=== PATIENT | female | born 1990 | race Caucasian/White ===

== ENCOUNTER 2019-05-08 13:53 | Outpatient (CLI) | payer MEDICAID, SELFPAY ==
[2019-05-08 15:15] LABS: TSH (W/Ref FT4) 1.31 uIU/mL (0.36-3.74)
[2019-05-11 09:35] LABS: Prolactin 8.1 ng/ml
== END 2019-05-08 14:13 ==
PROVIDERS: PCP Nurse Practitioner Family; Visit Provider Nurse Practitioner Family
DX: N91.2 Amenorrhea, unspecified (principal)
CPT/HCPCS: 84146; 84443

== ENCOUNTER 2019-05-08 14:19 | Outpatient (REF) | payer MEDICAID, SELFPAY ==
--- NOTE | 2019-05-08 13:40 | PAPFT_PTH ---
PATIENT: Ericka Ernandez LOC: [facility] U#:[id number] AGE/SX: 28/F ROOM: RE05/08/[address]: TISH Figueroa : 1990 BED: DIS: 05/08/2019 SPEC #: [id number] RECD: 05/08/19 18:31 STATUS: JONNY REQ #: [id number] GREGG: 05/08/19 13:[address]: Graciela Davis DEPT: [facility] Cytology RECD BY: Yasmine Lujan ENTERED: 05/08/19 18:31 SP TYPE: PAPFT OTHR DR: Deepak Ashley Tissues: 1 - CX/ENDOCX FOR PAP SMEARS Procedures: PAP THIN PREP/UVM Screening Comments: [id number]
== END 2019-05-08 14:39 ==
LOC: LBN 14:19
PROVIDERS: PCP Nurse Practitioner Family; Visit Provider Nurse Practitioner Family
DX: Z12.4 Encounter for screening for malignant neoplasm of cervix (principal)
CPT/HCPCS: 88142

== ENCOUNTER 2019-07-24 15:08 | Outpatient (REF) | payer MEDICAID, SELFPAY ==
[2019-07-27 14:44] LABS: Chlamydia Result Negative (Negative); GC Result Negative (Negative)
== END 2019-07-24 15:28 ==
LOC: NCHCN 15:08
PROVIDERS: PCP Nurse Practitioner Family; Visit Provider Nurse Practitioner Family
DX: Z11.3 Encounter for screening for infections with a predominantly sexual mode of transmission (principal)
CPT/HCPCS: 87491; 87591

== ENCOUNTER 2019-07-28 01:27 | Outpatient (CLI) | payer MEDICAID, SELFPAY ==
--- NOTE | 2019-07-28 14:12 | DI.US_ITS ---
EXAM: US PELVIS TRANSVAGINAL CLINICAL HISTORY: Dyspareunia and amenorrhea, N91.2. TECHNIQUE: Ultrasound of the pelvic, both abdominal and transvaginal was performed using standard pr otocol. COMPARISON: No exams were available for comparison FINDINGS: KIDNEYS: Kidneys are symmetric in size. No evidence of renal calculi. No evidence of hydronephrosis. No renal mass or cyst identified. UTERUS: Position: Anteverted. Size: 8.6 x 3.5 x 4.8 cm Endometrium: 0.7 cm. Normal for patient's menstrual status. Myometrium: Unremarkable. Cervix: Unremarkable. OVARIES: Right: 3 x 2.2 x 1.9 cm Cyst or mass: Small follicular cysts. No solid mass. Left: 2.8 x 1.7 x 1.7 cm Cyst or mass: Small follicular cysts. No solid mass. DOPPLER: Color: Symmetric and uniform flow to both ovaries. No hyperemia. Duplex: Normal ovarian arterial waveforms visualized. CUL-DE-SAC: Free fluid: None. IMPRESSION: 1. Normal sonographic appearance of the kidneys. 2. Normal-appearing uterus with endometrial stripe within normal limits. 3. Unremarkable bilateral ovaries.
== END 2019-07-28 01:47 ==
PROVIDERS: PCP Nurse Practitioner Family; Visit Provider Nurse Practitioner Family
DX: N91.2 Amenorrhea, unspecified (principal); N94.10 Unspecified dyspareunia
CPT/HCPCS: 76830; 76856

== ENCOUNTER 2019-07-30 15:05 | Outpatient (CLI) | payer MEDICAID, SELFPAY ==
[2019-08-03 16:21] LABS: Antimullerian Hormone 9.7 ng/mL (0.9-9.5)
== END 2019-07-30 15:25 ==
PROVIDERS: PCP Nurse Practitioner Family; Visit Provider Obstetrics & Gynecology Gynecology
DX: N91.2 Amenorrhea, unspecified (principal); Z31.9 Encounter for procreative management, unspecified
CPT/HCPCS: 36415; 83520

== ENCOUNTER 2019-09-24 02:13 | Outpatient (CLI) | payer MEDICAID, SELFPAY ==
--- NOTE | 2019-09-24 07:38 | DI.RAD_ITS ---
EXAM: RF HYSTEROSALPINGOGRAM CLINICAL HISTORY: INFERTILITY, EVALUATE UTERUS AND TUBES, [id number] TECHNIQUE: 2D and realtime digital imaging was performed. CONTRAST MATERIAL: Water soluble contrast was administered. COMPARISON: No exams were available for comparison FINDINGS: Fluoroscopically-guided hysterosalpingogram. The cervical opening was cannulated by Dr. Menjivar. Th en under fluoroscopic guidance, water-soluble contrast was injected in a retrograde fashion. The uterus fills normally, with no evidence of contour abnormality, filling defect, septum, stricture , mass, or bicornuate configuration. The bilateral uterine tubes are normal and patent with normal ra pid spillage of contrast into the peritoneum. IMPRESSION: Normal hysterosalpingogram.
--- NOTE | 2019-09-24 15:04 | OPPNE_ITS ---
Date of service: 09/24/19 Time of Service: 15:04 Procedure Note Date of procedure: 09/24/19 Procedure: Hysterosalpingogram Surgeon/Proceduralist/Physician: Julia Menjivar Procedure Diagnosis: Menstrual irregularity, desire for Procedure Indications: 28-year-old G0 female with a history of oligomenorrhea who desires . Evaluation has included normal anti-m?llerian hormone, TSH, and normal prolactin. I recommended evaluation of fallopian tube patency. Procedure Description: After verbal consent was obtained the patient was placed in the dorsal supine position with her hips elevated and a bivalve speculum was placed into the vagina. The cervix was cleansed with Betadine and a HSG catheter was placed through the cervix into the uterus and the bulb inflated. Patient's was positioned by the radiologist and under fluoroscopic imaging 10 cc of Omnipaque contrast material was instilled into the uterine cavity and observed as it spilled out both tubes and expedient manner. Once spillage was observed bilaterally the procedure was halted uterine balloon deflated and the HSG catheter removed. [place] speculum was removed from the patient's vagina and she was assisted off the table. She tolerated the procedure well. Clinical impression: History of oligomenorrhea with normal tubal patency.
== END 2019-09-24 02:33 ==
PROVIDERS: PCP Nurse Practitioner Family; Visit Provider Obstetrics & Gynecology Gynecology
DX: N91.2 Amenorrhea, unspecified (principal); Z31.9 Encounter for procreative management, unspecified
CPT/HCPCS: 58340; 76831; 74740

== ENCOUNTER 2020-05-04 15:16 | Outpatient (REF) | payer MEDICAID, SELFPAY ==
[2020-05-07 06:10] LABS: Patient Race White; SARS-CoV-2 RNA Undetected (Undetected); SARS-CoV-2 Specimen Source Nasal
== END 2020-05-04 15:36 ==
LOC: NCHCN 15:16
PROVIDERS: PCP Nurse Practitioner Family; Visit Provider Nurse Practitioner Family
DX: Z11.59 Encounter for screening for other viral diseases (principal)
CPT/HCPCS: U0003

== ENCOUNTER 2020-07-26 16:59 | Outpatient (REF) | payer MEDICAID, SELFPAY ==
[2020-07-26 19:04] LABS: *AMPHETAMINES SCREEN URINE Negative (Negative); *BARBITURATES SCREEN URINE Negative (Negative); *BENZODIAZEPINES SCREEN URINE Negative (Negative); Cannabinoids THC Negative (Negative); Cocaine Screen,Urine Negative (Negative); METHADONE URINE SCREEN Negative (Negative); OPIATES URINE SCREEN Negative (Negative)
[2020-07-26 19:14] LABS: Tricyclic Antidepressants Negative (Negative)
[2020-07-28 15:45] LABS: Chlamydia Result Negative (Negative); GC Result Negative (Negative)
[2020-08-02 11:59] LABS: Buprenorphine Negative; Norbuprenorphine Negative
== END 2020-07-26 17:19 ==
LOC: LBN 16:59
PROVIDERS: PCP Nurse Practitioner Family; Visit Provider Advanced Practice Midwife
DX: O26.891 Other specified pregnancy related conditions, first trimester (principal); N89.8 Other specified noninflammatory disorders of vagina; Z11.3 Encounter for screening for infections with a predominantly sexual mode of transmission
CPT/HCPCS: 80307; 87491; 87591; 87086; 87480; 87510; 87660

== ENCOUNTER 2020-08-01 08:12 | Outpatient (CLI) | payer MEDICAID, SELFPAY ==
[2020-08-01 11:23] LABS: Abs Immature Grans 0.01 10^3/uL (0.0-0.06); Absolute Basophil Count 0.03 10^3/uL (0.0-0.2); Absolute Lymphocyte Count 1.69 10^3/uL (1.2-3.4); Absolute Monocyte Count 0.42 10^3/uL (0.1-0.8); Absolute Neutrophil Count 6.41 10^3/uL (1.2-6.7); Basophils % 0.3; Eosinophils % 1.2; HCT 39.5 % (36.0-46.0); HGB 13.5 g/dL (11.2-15.7); Immature Grans % 0.1; Lymphocytes % 19.5; MCH 28.1 pg (27.0-33.0); MCHC 34.2 % (32.0-36.0); MCV 82.3 fL (80-95); MPV 10.5 fL (8.0-11.0); Monocytes % 4.8; Neutrophils % 74.1; Nucleated RBC 0 %; Platelet Count 212 10^3/uL (130-400); RDW 12.8 % (11.7-14.6); RDW-SD 38.4 fL; WBC 8.66 10^3/uL (4.4-10.8)
[2020-08-01 11:32] LABS: Glucose,1 Hr (Glucola) 110 mg/dL (80-140)
[2020-08-01 11:46] LABS: TSH (W/Ref FT4) 0.34 uIU/mL (0.36-3.74)
[2020-08-01 12:06] LABS: FREE T4 1.03 ng/dL (0.76-1.46)
[2020-08-02 10:06] LABS: Hepatitis C Ab w Rflx HCV PCR Negative (Negative)
[2020-08-02 10:30] LABS: Rubella IgG Ab (UVM) Positive (See Note); Varicella IgG Antibody Positive (See Note)
[2020-08-02 10:37] LABS: Syphilis Serology (RPR) Negative (Negative)
[2020-08-02 11:41] LABS: Hepatitis B Surface Ag Negative (Negative)
[2020-08-02 12:26] LABS: HIV-1/2 Ag & Ab Screen Negative (Negative)
== END 2020-08-01 08:32 ==
PROVIDERS: PCP Nurse Practitioner Family; Visit Provider Advanced Practice Midwife
DX: Z34.91 Encounter for supervision of normal pregnancy, unspecified, first trimester (principal); Z11.4 Encounter for screening for human immunodeficiency virus [HIV]; Z11.59 Encounter for screening for other viral diseases; Z01.84 Encounter for antibody response examination
CPT/HCPCS: 36415; 82950; 86787; 86803; 86850; 86900; 86901; 87340; 87389; 84439; 84443; 85025; 86592; 86762

== ENCOUNTER 2020-09-05 03:04 | Outpatient (CLI) | payer MEDICAID, SELFPAY ==
[2020-09-07 16:25] LABS: AFP 34.4 ng/mL; Calculated age at EDD 28 years; Cigarette smoking status non-Smoker; GA used in risk estimate Scan estimate; IVF Pregnancy No; Initial or repeat testing Initial testing; Insulin dependent diabetes No; Maternal Weight 224 lbs; Number of Fetuses 1; Physician Phone Number 802-748-7300; Prev Pregnancy w/NTD No; RECOMMENDED FOLLOW UP None.; Results Summary Normal risk
== END 2020-09-05 03:05 | disposition home or self-care (01) ==
LOC: LBO 03:04
PROVIDERS: PCP Nurse Practitioner Family; Visit Provider Obstetrics & Gynecology Gynecology
DX: Z34.92 Encounter for supervision of normal pregnancy, unspecified, second trimester (principal); Z36.89 Encounter for other specified antenatal screening
CPT/HCPCS: 36415; 82105

== ENCOUNTER 2020-09-19 01:26 | Outpatient (CLI) | payer MEDICAID, SELFPAY ==
--- NOTE | 2020-09-19 06:15 | DI.US_ITS ---
EXAM: US OB 2-3 TRIMESTER CLINICAL HISTORY: morphology,z34.82. TECHNIQUE: Transabdominal obstetrical ultrasound performed. COMPARISON: No exams were available for comparison FINDINGS: Number of fetuses: One. position: Breech heart rate: bpm. Placental grade: 0-1 Placental location: Anterior. No evidence of previa. BIOMETRIC DATA: BPD: 4.4cm HC: 17.0cm AC: 14.5cm FL: 3.2cm Cisterna Magna: 2.4 millimeters Cerebellum: 1.9 cm EFW: 318 grms 98% Composite Age: 19+ 5 weeks EDC by US: 08 February 2021 Heart Rate: 153BPM Amniotic fluid: Amount of fluid is visually within normal limits. ANATOMICAL SURVEY: Four-chambered heart: Unremarkable. LVOT: Unremarkable. RVOT: Unremarkable. Left-sided stomach: Unremarkable. urinary bladder: Unremarkable. Bilateral kidneys: Unremarkable. Three-vessel cord: Unremarkable. Cord insertion: Unremarkable. Umbilical artery velocity: Unremarkable. Posterior fossa:Unremarkable. ventricles: Unremarkable. nose: Unremarkable. lips: Unremarkable. palate: Unremarkable. spine: Unremarkable. Two arms and two legs: Unremarkable. IMPRESSION: 1. Single live intrauterine gestation at upper normal range of size and weight. 2. Normal anatomic survey. DATA REPOSITORY:
== END 2020-09-19 01:46 ==
PROVIDERS: PCP Nurse Practitioner Family; Visit Provider Obstetrics & Gynecology Gynecology
DX: Z34.92 Encounter for supervision of normal pregnancy, unspecified, second trimester (principal); Z3A.19 19 weeks gestation of pregnancy
CPT/HCPCS: 76805

== ENCOUNTER 2020-11-28 03:19 | Outpatient (CLI) | payer MEDICAID, SELFPAY ==
[2020-11-28 09:39] LABS: Abs Immature Grans 0.07 10^3/uL (0.0-0.06); Absolute Basophil Count 0.02 10^3/uL (0.0-0.2); Absolute Eosinophil Count 0.09 10^3/uL (0.0-0.7); Absolute Lymphocyte Count 1.44 10^3/uL (1.2-3.4); Absolute Monocyte Count 0.35 10^3/uL (0.1-0.8); Absolute Neutrophil Count 6.94 10^3/uL (1.2-6.7); Basophils % 0.2; HCT 35.9 % (36.0-46.0); HGB 11.5 g/dL (11.2-15.7); Immature Grans % 0.8; Lymphocytes % 16.2; MCH 26.1 pg (27.0-33.0); MCV 81.4 fL (80-95); MPV 10.5 fL (8.0-11.0); Monocytes % 3.9; Neutrophils % 77.9; Nucleated RBC 0 %; Platelet Count 218 10^3/uL (130-400); RBC 4.41 10^6/uL (3.93-5.22); RDW 13.1 % (11.7-14.6); RDW-SD 38.5 fL; WBC 8.91 10^3/uL (4.4-10.8)
[2020-11-28 09:47] LABS: Glucose,1 Hr (Glucola) 138 mg/dL (80-140)
[2020-11-28 10:56] LABS: TSH (W/Ref FT4) 0.75 uIU/mL (0.36-3.74)
== END 2020-11-28 03:20 | disposition home or self-care (01) ==
LOC: LBO 03:19
PROVIDERS: PCP Nurse Practitioner Family; Visit Provider Obstetrics & Gynecology Gynecology
DX: O99.283 Endocrine, nutritional and metabolic diseases complicating pregnancy, third trimester (principal); Z3A.28 28 weeks gestation of pregnancy
CPT/HCPCS: 36415; 82950; 84443; 85025

== ENCOUNTER 2020-12-06 03:25 | Outpatient (CLI) | payer MEDICAID, SELFPAY ==
[2020-12-06 11:21] LABS: Glucose 1 Hour 193 mg/dL
[2020-12-06 13:19] LABS: Glucose 3 Hour 114 mg/dL
--- NOTE | 2020-12-15 14:00 | W.DIABETESNO ---
Date of service: 12/15/20 Time of Service: 14:00 Diabetes Note NOTE: Met with Ericka at [facility] briefly. She was diagnosed with GDM, failed GTT. Ericka brought in her blood sugar logs and reports fasting sugars < 95 and post prandial levels < 140 mg/dl. Diet record indicates well balanced meals. Walking daily as able. GDM well controlled with diet/lifestyle at this time. Will continue to follow. Time Spent in Nutritional Counseling and Treatment: 5 min
== END 2020-12-06 03:26 | disposition home or self-care (01) ==
PROVIDERS: PCP Nurse Practitioner Family; Visit Provider Obstetrics & Gynecology
DX: Z34.91 Encounter for supervision of normal pregnancy, unspecified, first trimester (principal); Z3A.29 29 weeks gestation of pregnancy
CPT/HCPCS: 82951

== ENCOUNTER 2021-01-06 04:19 | Outpatient (CLI) | payer MEDICAID, SELFPAY ==
--- NOTE | 2021-01-06 06:48 | DI.US_ITS ---
Exam(s) US OB YANELIS WEIGHT EXAM: US OB YANELIS WEIGHT CLINICAL HISTORY: Size greater than dates,ELEVATED GLUCOSE,R73.09. TECHNIQUE: Transabdominal obstetrical ultrasound performed. COMPARISON: US US OB 2-3 TRIMESTER from 09/19/2020 US US OB 2-3 TRIMESTER from 09/19/2020 FINDINGS:: Number of fetuses: One. position: Vertex. Placental location: Anterior. No evidence of previa. BIOMETRIC DATA: BPD: 84mm = 34+ 0 weeks HC: 313 mm = 35+ 0 AC: 316mm = 35+4 FL: 67 mm = 34+4 EFW: 2583 Gms = 72% Composite Age: 34+ 6 weeks EDC: 11 February 2021 Heart Rate: 127BPM Amniotic fluid index: 24.7 cm. Borderline polyhydramnios. IMPRESSION: size and weight are within the expected range. Borderline polyhydramnios. DATA REPOSITORY:
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
== END 2021-01-06 04:39 ==
PROVIDERS: PCP Nurse Practitioner Family; Visit Provider Obstetrics & Gynecology
DX: O99.810 Abnormal glucose complicating pregnancy (principal); R73.09 Other abnormal glucose; Z3A.34 34 weeks gestation of pregnancy
CPT/HCPCS: 76816

== ENCOUNTER 2021-01-20 16:35 | Outpatient (REF) | payer MEDICAID, SELFPAY ==
[2021-01-20 18:16] LABS: *AMPHETAMINES SCREEN URINE Negative (Negative); *BARBITURATES SCREEN URINE Negative (Negative); *BENZODIAZEPINES SCREEN URINE Negative (Negative); Cannabinoids THC Negative (Negative); Cocaine Screen,Urine Negative (Negative); METHADONE URINE SCREEN Negative (Negative); OPIATES URINE SCREEN Negative (Negative)
[2021-01-20 18:17] LABS: Tricyclic Antidepressants Negative (Negative)
[2021-01-26 10:12] LABS: Buprenorphine Negative ng/mL (Cutoff: 5.0)
== END 2021-01-20 16:36 | disposition home or self-care (01) ==
LOC: LBN 16:35
PROVIDERS: PCP Nurse Practitioner Family; Visit Provider Obstetrics & Gynecology Gynecology
DX: Z34.93 Encounter for supervision of normal pregnancy, unspecified, third trimester (principal); Z36.85 Encounter for antenatal screening for Streptococcus B; Z3A.36 36 weeks gestation of pregnancy
CPT/HCPCS: 80307; 87081

== ENCOUNTER 2021-01-21 22:39 | Inpatient (IN) | payer MEDICAID, SELFPAY ==
[2021-01-21 22:25] VITALS: BP 145/88; PULSE 80; RESP 18; TEMP 36.7
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
[2021-01-21] MEDS: Lactated Ringers 1,000 ML 150 ML IV (23:15)
[2021-01-21 23:22] LABS: Source Nasal/Nares
[2021-01-21 23:22] LABS: HCT 35.7 % (36.0-46.0); HGB 11.2 g/dL (11.2-15.7); MCH 23.7 pg (27.0-33.0); MCHC 31.4 % (32.0-36.0); MCV 75.5 fL (80-95); MPV 10.5 fL (8.0-11.0); Platelet Count 253 10^3/uL (130-400); RBC 4.73 10^6/uL (3.93-5.22); RDW 14.6 % (11.7-14.6); RDW-SD 39.7 fL; WBC 10.71 10^3/uL (4.4-10.8)
[2021-01-21] MEDS: Penicillin G POT. 5,000,000 UNITS in Normal Saline 100 ML 200 UNITS IVPB (23:26)
[2021-01-21 23:36] LABS: Anion Gap 11.9 mmol/L (3-11); BUN 9 mg/dL (7-18); CO2 22.1 mmol/L (21.0-32.0); CREATININE 0.7 mg/dL (0.55-1.02); Calcium 9.2 mg/dL (8.5-10.1); Chloride 103 mmol/L (98-107); Glucose 111 mg/dL (74-106); Potassium 3.7 mmol/L (3.5-5.1); Sodium 137 mmol/L (136-145)
[2021-01-21 23:45] VITALS: BP 137/79; PULSE 80; O2SAT 97
[2021-01-21 23:50] VITALS: PULSE 78; O2SAT 98
[2021-01-21 23:55] VITALS: PULSE 79; O2SAT 98
[2021-01-22] VITALS (30 sets, daily range): BP systolic 106–142; BP diastolic 57–82; PULSE 58–88; RESP 16–18; TEMP 36.7–37.2; O2SAT 98–99
[2021-01-22] MEDS: FentaNYL/ROPIvacaine 2 mcg/ml and 0.1% 200 ML CADD Cassette EP (00:05)
--- NOTE | 2021-01-22 00:10 | ANES.NEUR_ITS ---
Epidural/Spinal Catheter Date Performed: 01/21/21 Procedure Start: 23:40 Procedure Stop: 00:18 Requesting Provider: Julia Menjivar Procedure Location: Obstetrics Reason Performed: Labor Epidural Standard Monitors Applied: Blood Pressure, SpO2 and See EMR for corresponding vital signs Patient Position: Sitting Sedation Given (Indicate Dose Given): No Sedation given Patient Mental Status: Awake Sterility: Hand Hygiene, Surgical Cap, Surgical Mask, Sterile Gloves, Sterile Drape/Sheet and Chlorhexidine Procedure Location: L3-L4 Interspace Epidural Needle: Tuohy 18 Gauge Needle Length: 3.5 Inch Needle Approach: Midline Epidural Procedure: Skin Prepped, Sterile Drape Placed, 1% Lidocaine to skin and subcutaneous tissue with 25G needle, Tuohy Needle placed, PIPE to Saline Used, Epidural Catheter Placed, Negative Heme, Negative CSF Flow and Tuohy Needle Removed Catheter Placed?: Catheter Placed Test Dose (Indicate Dose Given): 3ml 1.5% Lid ocaine with 1:200K Epinephrine Given and Negative Test Dose Loss of Resistance Depth (cm): 7 Catheter depth at skin (cm): 13 Dressing: [place] Dressing Placed, Mastisol Used and Dressing reinforced with Tape Epidural Provider Bolus (Indicate Dose Given): Total bolus dose given in 3-5 ml divided doses and Total Ropivacaine 0.1% with Fentanyl 2mcg/ml Given from pump (ml) Dose:: 5 ml Additives (Indicate Dose Given ): None Infusion Medication: Medication Infusion Began Medication Infusion: Ropivacaine 0.1% with Fentanyl 2mcg/ml Maintenance Infusion Rate (ml/hour): 10 PCEA Bolus Dose (ml): 5 Block Level: N/A Paresthesia: None Ultrasound: Used to barabra site Number of Attempts (See previous attempts in note section): 1 Procedure Tolerated: No Complications and Patient tolerated well Procedure Outcome: Successful Procedure Comment:: Placed without difficulty after marking with ultrasound. Dosed 5 ml and let infusion continue. Educated on PCEA button use. Pt. no longer feels contractions and has 5/5 motor strength. Initially said her right thigh was feeling a little numb and eventually stated her left felt the same. Performed By: Hans Campos
[2021-01-22 00:12] LABS: COVID-19 PCR Negative (Negative)
--- NOTE | 2021-01-22 00:27 | PGE_ITS ---
Date of service: 01/22/21 Time of Service: 00:27 Informed Consent Informed Consent: Regional Anesthesia Pelvic Exam Dilation: 6 Effacement (%): 50 station: -1 Position: OA Cervix Position: mid Consistency: soft Vaginal Exam Presentation: Cephalic Comments: Light meconium stained fluid noted Contractions Monitor Mode: External Contraction Frequency(min): 3 Contraction Duration(sec): 45 Intensity: Moderate Fetus A Monitor: Internal (FSE) Heart Rate Baseline: 40 Presentation: Cephalic Variability: Moderate (6-25 BPM) Categories: Category II (Deceleration of heart rate to 60 bpm with rapid return to baseline after scalp electrode placed.) CategoryII Plan of Care: Continuous Monitoring/Observation FHR Rhythm: Regular Characteristics: Normal Accelerations: 15 X 15 Decelerations: Variable (Unable to assess if associated with contraction) Recurrence: Episodic (Occurred once and resolved) Amniotic Membrane Status: Ruptured Rupture Method: Spontaneous Amniotic Fluid: Meconium (Lightly odium stained fluid) Amount: Copious Assessment Note: Because of fetuses premature status and MAC stained amniotic fluid Dr. Lilliam Eduardo foundry manager was notified of the presence of the fetus. The present time I do not feel that she needs to be present for the delivery but we will keep her abreast of any changes in status. Assessment and Plan Assessment and plan (1) Glucose intolerance: Status: Acute Assessment and plan: Random glucose 114. Patient did not require insulin during her and had excellent glycemic control demonstrated by serial CBGs. (2) Active labor: Status: Acute Assessment and plan: Patient progressing in labor. Epidural in place. Current status is category 1 heart rate tracing. Qualifiers: Fetus number: single or unspecified fetus Qualified Code(s): O60.10X0 - labor with delivery, unspecified trimester, not applicable or unspecified Objective Abnormal lab results 01/21/21 01/21/21 Range/Units 23:11 23:11 Hct 35.7 L (36.0-46.0) % MCV 75.5 L (80-95) fL MCH 23.7 L (27.0-33.0) pg MCHC 31.4 L (32.0-36.0) % Anion Gap 11.9 H (3-11) mmol/L Glucose 111 H (74-106) mg/dL Temp Pulse Resp BP Pulse Ox 98.1 F 73 18 135/78 99 01/21/21 22:25 01/22/21 00:25 01/21/21 22:25 01/22/21 00:22 01/22/21 00:25 Laboratory Results WBC 10.71 10^3/uL (4.4-10.8) 01/21/21 23:11 RBC 4.73 10^6/uL (3.93-5.22) 01/21/21 23:11 Hgb 11.2 g/dL (11.2-15.7) 01/21/21 23:11 Hct 35.7 % (36.0-46.0) L 01/21/21 23:11 MCV 75.5 fL (80-95) L 01/21/21 23:11 MCH 23.7 pg (27.0-33.0) L 01/21/21 23:11 MCHC 31.4 % (32.0-36.0) L 01/21/21 23:11 RDW 14.6 % (11.7-14.6) 01/21/21 23:11 Plt Count 253 10^3/uL (130-400) 01/21/21 23:11 MPV 10.5 fL (8.0-11.0) 01/21/21 23:11 Sodium 137 mmol/L (136-145) 01/21/21 23:11 Potassium 3.7 mmol/L (3.5-5.1) 01/21/21 23:11 Chloride 103 mmol/L (98-107) 01/21/21 23:11 Carbon Dioxide 22.1 mmol/L (21.0-32.0) 01/21/21 23:11 Anion Gap 11.9 mmol/L (3-11) H 01/21/21 23:11 BUN 9 mg/dL (7-18) 01/21/21 23:11 Creatinine 0.7 mg/dL (0.55-1.02) 01/21/21 23:11 Estimated GFR/1.73 m2 >= 60.00 (mL/min/1.73m2) 01/21/21 23:11 Glucose 111 mg/dL (74-106) H 01/21/21 23:11 Calcium 9.2 mg/dL (8.5-10.1) 01/21/21 23:11 Membranes Rupture Cancelled 01/21/21 22:45 COVID-19 Source Nasal/Nares 01/21/21 23:00 SARS-CoV-2 (PCR) Negative (Negative) 01/21/21 23:00 Patient ABO/Rh A Positive 01/21/21 23:11 Antibody Screen NEGATIVE 01/21/21 23:11 Subjective Patient Reports: No new Complaints Interval history since last seen: Anesthesia administered a labor epidural without difficulty. heart rate was difficult to trace with external tocometer and scalp electrode was placed initially after placement there was a deceleration of the heart rate to 60 bpm 30 seconds which resolved spontaneously and has not recurred. Patient continues to have regular contractions and cervix has dilated 6 cm. presenting part remains vertex with significant loss of amniotic fluid allowing the presenting part to travel from -2 to -1 station. Interventions Pain Management Interventions: Epidural (Placed without difficulty) Epidural Placed by:: Hans Capmos . Results Hemoglobin/Hematocrit: Hgb 11.2 g/dL (11.2-15.7) 01/21/21 23:11 Hct 35.7 % (36.0-46.0) L 01/21/21 23:11 Abnormal Lab Findings: Abnormal Labs 01/21/21 01/21/21 23:11 23:11 Hct 35.7 L MCV 75.5 L MCH 23.7 L MCHC 31.4 L Anion Gap 11.9 H Glucose 111 H Procedure Procedures: Scalp Electrode Placement , indication for electrode: Unable to monitor heart rate
[2021-01-22 01:32] LABS: *AMPHETAMINES SCREEN URINE Negative (Negative); *BARBITURATES SCREEN URINE Negative (Negative); *BENZODIAZEPINES SCREEN URINE Negative (Negative); Cannabinoids THC Negative (Negative); Cocaine Screen,Urine Negative (Negative); METHADONE URINE SCREEN Negative (Negative); OPIATES URINE SCREEN Negative (Negative)
[2021-01-22 01:33] LABS: Tricyclic Antidepressants Negative (Negative)
[2021-01-22] MEDS: Ondansetron 4 MG/2 ML VIAL IVP (02:05)
[2021-01-22] MEDS: Lactated Ringers 1,000 ML 150 ML IV (03:00)
[2021-01-22] MEDS: Penicillin G POT. 3,000,000 UNITS in Normal Saline 50 ML 100 UNITS IVPB (03:16)
--- NOTE | 2021-01-22 05:07 | W.PM.OBNL1 ---
Date of service: 01/22/21 Time of Service: 05:07 Informed Consent Informed Consent: Regional Anesthesia Pelvic Exam Dilation: 8 Effacement (%): 100 station: +1 Position: YURIY Cervix Position: anterior Consistency: soft Vaginal Exam Presentation: Cephalic Contractions Monitor Mode: External Contraction Frequency(min): 3 Contraction Duration(sec): 60 Intensity: Moderate (Pt comfortable with epidural in place. Contx palpated moderate) Fetus A Monitor: Internal (FSE) Heart Rate Baseline: 130 Presentation: Cephalic Variability: Moderate (6-25 BPM) (marked elevation of FHR in response to FSE.) Categories: Category II CategoryII Plan of Care: Intrauterine Resuscitation, Team Huddle and Continuous Monitoring/Observation FHR Rhythm: Regular Characteristics: Normal Accelerations: 15 X 15 Decelerations: Variable Recurrence: Intermittent Amniotic Membrane Status: Ruptured Assessment Note: Brief episode of Category 2 strip that resolved with postion changes and increased IV fluids. Strip is now category 1. Assessment and Plan Assessment and plan (1) Active labor: Status: Acute Assessment and plan: Pt progressing in labor. Comfortable with epidural in place. Continue current management. Peds had been notified of pt's status on arrival to floor. Qualifiers: Fetus number: single or unspecified fetus Qualified Code(s): O60.10X0 - labor with delivery, unspecified trimester, not applicable or unspecified Objective Abnormal lab results 01/21/21 01/21/21 Range/Units 23:11 23:11 Hct 35.7 L (36.0-46.0) % MCV 75.5 L (80-95) fL MCH 23.7 L (27.0-33.0) pg MCHC 31.4 L (32.0-36.0) % Anion Gap 11.9 H (3-11) mmol/L Glucose 111 H (74-106) mg/dL Temp Pulse Resp BP Pulse Ox 98.6 F 67 16 126/75 98 01/22/21 02:08 01/22/21 04:44 01/22/21 02:08 01/22/21 04:44 01/22/21 03:00 Laboratory Results WBC 10.71 10^3/uL (4.4-10.8) 01/21/21 23:11 RBC 4.73 10^6/uL (3.93-5.22) 01/21/21 23:11 Hgb 11.2 g/dL (11.2-15.7) 01/21/21 23:11 Hct 35.7 % (36.0-46.0) L 01/21/21 23:11 MCV 75.5 fL (80-95) L 01/21/21 23:11 MCH 23.7 pg (27.0-33.0) L 01/21/21 23:11 MCHC 31.4 % (32.0-36.0) L 01/21/21 23:11 RDW 14.6 % (11.7-14.6) 01/21/21 23:11 Plt Count 253 10^3/uL (130-400) 01/21/21 23:11 MPV 10.5 fL (8.0-11.0) 01/21/21 23:11 Sodium 137 mmol/L (136-145) 01/21/21 23:11 Potassium 3.7 mmol/L (3.5-5.1) 01/21/21 23:11 Chloride 103 mmol/L (98-107) 01/21/21 23:11 Carbon Dioxide 22.1 mmol/L (21.0-32.0) 01/21/21 23:11 Anion Gap 11.9 mmol/L (3-11) H 01/21/21 23:11 BUN 9 mg/dL (7-18) 01/21/21 23:11 Creatinine 0.7 mg/dL (0.55-1.02) 01/21/21 23:11 Estimated GFR/1.73 m2 >= 60.00 (mL/min/1.73m2) 01/21/21 23:11 Glucose 111 mg/dL (74-106) H 01/21/21 23:11 Calcium 9.2 mg/dL (8.5-10.1) 01/21/21 23:11 Membranes Rupture Cancelled 01/21/21 22:45 Urine Opiates Screen Negative (Negative) 01/22/21 01:00 Urine Methadone Screen Negative (Negative) 01/22/21 01:00 Ur Barbiturates Screen Negative (Negative) 01/22/21 01:00 Ur Tricyclics Screen Negative (Negative) 01/22/21 01:00 Ur Amphetamines Screen Negative (Negative) 01/22/21 01:00 U Benzodiazepines Scrn Negative (Negative) 01/22/21 01:00 Urine Cocaine Screen Negative (Negative) 01/22/21 01:00 Ur THC Screen Negative (Negative) 01/22/21 01:00 COVID-19 Source Nasal/Nares 01/21/21 23:00 SARS-CoV-2 (PCR) Negative (Negative) 01/21/21 23:00 Patient ABO/Rh A Positive 01/21/21 23:11 Antibody Screen NEGATIVE 01/21/21 23:11 Subjective Patient Reports: No new Complaints Interval history since last seen: Called to room by RN for evaluation of FHR tracing after an episode of decleration that resolved with position change. Pt is comfortable with epidural. Christiansen to gravity drainage had been placed by RN. Interventions Oxygen (via face mask. ) , Indication: Category 2 event on FHR tracing. ./ Pain Management Interventions: Coping Well, No Interventions needed (Epidural in place. Tolerating contractions well. ) . Results Hemoglobin/Hematocrit: Hgb 11.2 g/dL (11.2-15.7) 01/21/21 23:11 Hct 35.7 % (36.0-46.0) L 01/21/21 23:11 Abnormal Lab Findings: Abnormal Labs 01/21/21 01/21/21 23:11 23:11 Hct 35.7 L MCV 75.5 L MCH 23.7 L MCHC 31.4 L Anion Gap 11.9 H Glucose 111 H
[2021-01-22] MEDS: Acetaminophen 325 MG TAB 650 MG PO ×3 (06:21→20:10)
[2021-01-22] MEDS: Oxytocin/Normal Saline 30 UNIT/500 ML BAG 95 UNITS IV (06:40)
--- NOTE | 2021-01-22 06:49 | W.OBDELIVERY ---
Date of service: 01/22/21 Time of Service: 06:49 OB Labor/ Delivery Information Baby A Delivery Delivery Method: Spontaneaous Presentation: Cephalic Cephalic Position: Vertex Vertex Position: Right Occipital Anterior Cord Description-Baby A: 3 Vessels, Nuchal Cord and Reduced Amniotic Fluid: Meconium Estimated Blood Loss: 100 Delivery Outcome: Liveborn Providers Doctor: Julia Menjivar Labor/Delivery Information Number of Babies in Womb: 1 Steroids Given: None Reason Steroids Not Administered: N/A Group Beta Strep: Positive Antibiotics Administered: Yes Number of Doses of Antibiotics: 2 Rubella Status: Immune Blood Type: A+ Varicella Immunity: Immune Shoulder Dystocia: No Stages of Labor Onset of Labor Date: 01/21/21 Onset of Labor Time: 21:45 Complete Dilatation Date: 01/22/21 Complete Dilatation Time: 06:18 Labor - Stage 1 Duration: 24 hours and 0 minutes ROM Baby A: 01/21/21 ROM Baby A: 21:45 Placenta Cultured: No Placenta Status: Delivered Baby A Infant Gender: Female Gestational Status: Late (34-36.6 wks) Interventions Pain Management Interventions: Epidural (placed at 4cm dilation) well tolerated. . ./ Episiotomy/ Repair of Laceration Type: None ,/ Assisted Delivery
--- NOTE | 2021-01-22 07:00 | PLAC_PTH ---
PATIENT: Ericka Ernandez LOC: OBS U#:[id number] AGE/SX: 30/F ROOM: OBS.304 RE01/21/[address]: Julia Menjivar : 1990 BED: A DIS: 01/23/2021 SPEC #: [id number] RECD: 01/23/21 12:13 STATUS: JONNY REQ #: [id number] GREGG: 01/22/21 07:[address]: Julia Menjivar DEPT: Surgical Specimen RECD BY: Yasmine Lujan ENTERED: 01/23/21 12:14 SP TYPE: PLAC OTHR DR: Deepak Ashley Tissues: 1 - PLACENTA (3RD TRIMESTER) Procedures: GROSS AND MICRO LEVEL 5 Comments: [id number]
--- NOTE | 2021-01-22 11:41 | W.ANESPOSTOP ---
Postoperative Evaluation Date, Time and Location Date Performed: 01/22/21 Time Performed: 11:41 Patient Location: Obstetrics Vital Signs Most Recent Imported Vital Signs: Most Recent Vital Signs Temp Pulse Resp BP Pulse Ox 37.2 C 84 18 141/76 H 98 01/22/21 10:17 01/22/21 10:17 01/22/21 10:17 01/22/21 10:17 01/22/21 03:00 Pain Score Most Recent Pain Score: Most Recent Pain Score Pain Level 0 01/22/21 07:21 Assessment Mental Status: Awake (Alert & Oriented to Patient Baseline) Airway and Respiratory Function: Patent airway with normal (patient baseline) respiratory exam Cardiovascular Function: Hemodynamically Stable Hydration Status: Adequately Hydrated Nausea & Vomiting: No Nausea or Vomiting Pain: Pain is tolerable per patient Peripheral Nerve Block: Patient did not receive a nerve block
[2021-01-22] MEDS: Ibuprofen 600 MG TAB PO ×2 (16:00→21:50)
[2021-01-23 09:00] VITALS: BP 117/79; PULSE 64; RESP 16; TEMP 36.5; O2SAT 99
--- NOTE | 2021-01-23 09:38 | OBPPV_ITS ---
Date of service: 01/23/21 Time of Service: 09:38 Assessment and Plan Assessment and plan (1) Vaginal delivery: Status: Acute Assessment and plan: Late delivery. GBS RV CX negative. Patient received penicillin prophylaxis prior to delivery. has been placed on the breast and is receiving formula supplementation. Board Certified Arts Therapist will evaluate for suitability of infant discharge later today. Subjective Subjective Patient comments: No complaints, Tolerating diet and Flatus present Patient's Mood: Good Parnell baby status: Supplemental feeding going well (Patient continues to pump breastmilk-mom returned), Rooming in and Strong Bonding Observed Parnell feeding status: Breast and formula feeding Exam Physical Exam Vital signs: Temp Pulse Resp BP Pulse Ox 98.1 F 58 L 16 123/78 98 01/22/21 20:00 01/22/21 20:00 01/22/21 20:00 01/22/21 20:00 01/22/21 20:00 Constitutional Constitutional: no acute distress Neck Exam Neck Exam: Normal Respiratory Exam Respiratory Exam: Normal Cardiovascular Exam Cardiovascular Exam: Normal Abdominal Exam Abdomen: Other (No tenderness) Fundal Exam Fundus: Below Umbilicus Rectal Exam Rectal Exam: Not Done Extremities Exam Extremity Exam: Normal Back/Spine/Pelvis Exam Back Exam: Normal Skin Exam Skin Exam: Normal Neurological Exam Neurological Exam: Normal Psychiatric Exam Psychiatric Exam: Normal Results Hemoglobin/Hematocrit: Hgb 11.2 g/dL (11.2-15.7) 01/21/21 23:11 Hct 35.7 % (36.0-46.0) L 01/21/21 23:11 Abnormal Lab Findings: Abnormal Labs 01/21/21 01/21/21 23:11 23:11 Hct 35.7 L MCV 75.5 L MCH 23.7 L MCHC 31.4 L Anion Gap 11.9 H Glucose 111 H
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
== END 2021-01-23 16:15 | disposition home or self-care (01) | DRG 807 ==
PROVIDERS: Admitting Provider Obstetrics & Gynecology Gynecology; PCP Nurse Practitioner Family; Visit Provider Obstetrics & Gynecology Gynecology
DX: O60.10X0 Preterm labor with preterm delivery, unspecified trimester, not applicable or unspecified (principal); Z37.0 Single live birth; Z3A.36 36 weeks gestation of pregnancy; O60.14X0 Preterm labor third trimester with preterm delivery third trimester, not applicable or unspecified; O77.0 Labor and delivery complicated by meconium in amniotic fluid; O69.81X0 Labor and delivery complicated by cord around neck, without compression, not applicable or unspecified; O42.013 Preterm premature rupture of membranes, onset of labor within 24 hours of rupture, third trimester; O99.62 Diseases of the digestive system complicating childbirth; O99.814 Abnormal glucose complicating childbirth; K59.00 Constipation, unspecified; K21.9 Gastro-esophageal reflux disease without esophagitis
CPT/HCPCS: 80048; 80307; 84112; 85027; 86850; 86900; 86901; 87635; 88307; J2405; J2540

== ENCOUNTER 2021-09-11 16:02 | Outpatient (REF) | payer MEDICAID, SELFPAY ==
[2021-09-11 18:48] LABS: Abs Immature Grans 0.03 10^3/uL (0.0-0.06); Absolute Basophil Count 0.04 10^3/uL (0.0-0.2); Absolute Eosinophil Count 0.07 10^3/uL (0.0-0.7); Absolute Monocyte Count 0.38 10^3/uL (0.1-0.8); Absolute Neutrophil Count 5.25 10^3/uL (1.2-6.7); Basophils % 0.5; Eosinophils % 0.9; HCT 42.3 % (36.0-46.0); HGB 13.8 g/dL (11.2-15.7); Immature Grans % 0.4; Lymphocytes % 27.6; MCH 27.2 pg (27.0-33.0); MCHC 32.6 % (32.0-36.0); MCV 83.3 fL (80-95); Monocytes % 4.8; Neutrophils % 65.8; Nucleated RBC 0 %; Platelet Count 298 10^3/uL (130-400); RBC 5.08 10^6/uL (3.93-5.22); RDW 13.1 % (11.7-14.6); WBC 7.97 10^3/uL (4.4-10.8)
[2021-09-11 18:50] LABS: ESR 20 mm/hr (0-20)
[2021-09-11 19:23] LABS: C-Reactive Protein 0.12 mg/dL (0.0-0.3)
[2021-09-12 16:37] LABS: Rheumatoid Factor <8.6 IU/mL (<12.0)
[2021-09-13 09:25] LABS: Lyme Ab w Rflx to Lyme Confirm Negative (Negative)
[2021-09-13 15:31] LABS: ANA Interpretation Negative (Negative)
[2021-09-15 19:56] LABS: Anaplasma phagocytophilum Negative (Negative); B. miyamotoi PCR Negative (Negative); Babesia divergens/MO-1 Negative (Negative); Babesia duncani Negative (Negative); Babesia microti Negative (Negative); Ehrlichia chaffeensis Negative (Negative); Ehrlichia ewingii/canis Negative (Negative); Ehrlichia muris eauclairensis Negative (Negative)
== END 2021-09-11 16:03 | disposition home or self-care (01) ==
LOC: NCHCN 16:02
PROVIDERS: PCP Nurse Practitioner Family; Visit Provider Nurse Practitioner Family
DX: R07.2 Precordial pain (principal); M25.59 Pain in other specified joint
CPT/HCPCS: 85652; 87798; 85025; 86038; 86140; 86431; 86618

== ENCOUNTER 2022-03-16 14:20 | Outpatient (REF) | payer MEDICAID, SELFPAY ==
[2022-03-16 18:01] LABS: TSH (W/Ref FT4) 1.46 uIU/mL (0.36-3.74)
== END 2022-03-16 14:21 | disposition home or self-care (01) ==
LOC: NCHCN 14:20
PROVIDERS: PCP Nurse Practitioner Family; Visit Provider Nurse Practitioner Family
DX: R63.5 Abnormal weight gain (principal)
CPT/HCPCS: 84443

== ENCOUNTER 2023-04-02 12:31 | Outpatient (REF) | payer MEDICAID, SELFPAY ==
--- NOTE | 2023-04-02 11:00 | PAPFT_PTH ---
PATIENT: Ericka Ernandez LOC: [facility]ICKI U#:[id number] AGE/SX: 32/F ROOM: RE04/02/[address]: Julia Menjivar : 1990 BED: DIS: 04/02/2023 SPEC #: [id number] RECD: 04/02/23 12:49 STATUS: JONNY REQ #: [id number] GREGG: 04/02/23 11:[address]: Julia Menjivar DEPT: [facility] Cytology RECD BY: Yasmine Lujan Tissues: 1 - CX/ENDOCX FOR PAP SMEARS Procedures: PAP THIN PREP/UVM Screening HPV DNA PROBE Comments: [id number]
[2023-04-04 15:08] LABS: Chlamydia Result Negative (Negative); GC Result Negative (Negative)
== END 2023-04-02 12:32 | disposition home or self-care (01) ==
LOC: LBN 12:31
PROVIDERS: Referring Provider Obstetrics & Gynecology Gynecology; Visit Provider Obstetrics & Gynecology Gynecology
DX: N93.0 Postcoital and contact bleeding (principal); N94.19 Other specified dyspareunia; Z11.3 Encounter for screening for infections with a predominantly sexual mode of transmission; Z12.4 Encounter for screening for malignant neoplasm of cervix; Z11.51 Encounter for screening for human papillomavirus (HPV)
CPT/HCPCS: 87491; 87591; 88142; 87624

== ENCOUNTER 2023-04-02 16:25 | Outpatient (REF) | payer MEDICAID, SELFPAY ==
[2023-04-02 18:50] LABS: ESR 8 mm/hr (0-20); HCT 38.8 % (36.0-46.0); HGB 12.8 g/dL (11.2-15.7); MCH 27.8 pg (27.0-33.0); MCV 84 fL (80-95); MPV 11.1 fL (8.0-11.0); Platelet Count 223 10^3/uL (130-400); RDW 14.3 % (11.7-14.6); RDW-SD 43.3 fL; WBC 6.39 10^3/uL (4.4-10.8)
[2023-04-02 19:09] LABS: ALT 63 U/L (14-59); AST 64 U/L (15-37); Albumin 3.9 g/dL (3.4-5.0); Alkaline Phosphatase 79 U/L (46-116); Anion Gap 7.6 mmol/L (3-11); BUN 11 mg/dL (7-18); Bilirubin, Total 0.6 mg/dL (0.2-1.0); CO2 27.4 mmol/L (21.0-32.0); CREATININE 1.1 mg/dL (0.55-1.02); Calcium 9.3 mg/dL (8.5-10.1); Chloride 104 mmol/L (98-107); Estimated GFR 69.32 (mL/min/1.73m2); Glucose 106 mg/dL (74-106); Magnesium 2.4 mg/dL (1.8-2.4); Potassium 4.1 mmol/L (3.5-5.1); Sodium 139 mmol/L (136-145); Total Protein 7.4 g/dL (6.4-8.2)
[2023-04-02 21:50] LABS: Absolute Basophil Count 0.06 10^3/uL (0.0-0.2); Absolute Eosinophil Count 0.13 10^3/uL (0.0-0.7); Absolute Lymphocyte Count 4.03 10^3/uL (1.2-3.4); Absolute Monocyte Count 0.77 10^3/uL (0.1-0.8); Absolute Neutrophil Count 1.41 10^3/uL (1.2-6.7); Atypical Lymphocytes % 25; Bands % 1; Diff Comment Manual Differential
[2023-04-02 21:51] LABS: RBC Morphology Normal
[2023-04-02 23:20] LABS: Hemoglobin A1C 5.3 % (<5.7)
[2023-04-03 19:14] LABS: Prolactin 9.2 ng/mL (See Note)
== END 2023-04-02 16:26 | disposition home or self-care (01) ==
LOC: NCHCN 16:25
PROVIDERS: PCP Nurse Practitioner Family; Visit Provider Nurse Practitioner Family
DX: R07.2 Precordial pain (principal); E66.9 Obesity, unspecified; R53.83 Other fatigue
CPT/HCPCS: 80053; 85652; 83036; 83735; 84146; 85025

== ENCOUNTER → 2023-04-05 01:31 | Outpatient (CLI) | payer MEDICAID, SELFPAY ==
--- NOTE | 2023-04-05 07:00 | DI.US_ITS ---
Exam(s) US PELVIS TRANSVAGINAL EXAM: US PELVIS TRANSVAGINAL CLINICAL HISTORY: IUD in place, Dyspareunia,abnl uterine bleeding,n93.0,z97.5,n94.10. TECHNIQUE: Transabdominal and transvaginal pelvic ultrasound was performed using standard protocol. COMPARISON: US US PELVIS TRANSVAGINAL from 07/28/2019 FINDINGS: UTERUS: Position: Anteverted. Size: 9.2 long by 4.1 AP by 4.6 transverse cm Endometrium: 0.5 cm. Normal for patient's menstrual status. The patient's IUD is seen in the lower ut erine segment extending into the cervix. Myometrium: Unremarkable. Cervix: Unremarkable. OVARIES: Right: 3.0 x 1.7 x 2.8 cm Cyst or mass: No suspicious cystic or solid masses. Left: 3.2 x 2.1 x 3.0 cm Cyst or mass: No suspicious cystic or solid masses. DOPPLER: Color: Symmetric and uniform flow to both ovaries. CUL-DE-SAC: Free fluid: None. Other: None. IMPRESSION: 1. The IUD is located abnormally in the lower uterine segment and extending into the cervical canal. 2. Normal-appearing uterus with endometrial stripe within normal limits. 3. Unremarkable bilateral ovaries. DATA REPOSITORY:
== END ==
PROVIDERS: PCP Nurse Practitioner Family; Visit Provider Obstetrics & Gynecology Gynecology
DX: Z97.5 Presence of (intrauterine) contraceptive device; T83.32XA Displacement of intrauterine contraceptive device, initial encounter
CPT/HCPCS: 76830; 76856

== ENCOUNTER → 2023-04-18 01:45 | Outpatient (CLI) | payer MEDICAID, SELFPAY ==
--- NOTE | 2023-04-18 | DI.US_ITS ---
Exam(s) US BREAST LT COMPLETE US BREAST RT COMPLETE MG MAMMO DIAGNOSTIC BI EXAM: MG MAMMO DIAGNOSTIC BI AND BILATERAL COMPLETE BREAST ULTRASOUND CLINICAL HISTORY: BILAT BREAST PAIN N64.4. TECHNIQUE: BILATERAL CC AND MLO mammographic images were obtained with 3D tomosynthesis technique an d utilizing computer aided detection (CAD). BILATERAL COMPLETE BREAST ULTRASOUND was performed including all 4 quadrants of both breasts and both axillary regions. COMPARISON: This is a baseline study on this 32-year-old patient who has bilateral breast pain. No lumps. FINDINGS: DIAGNOSTIC MAMMOGRAM: There are no spiculated masses nor malignant-appearing microcalcification groups in either breast. There is no significant architectural distortion or skin thickening-traction. BILATERAL COMPLETE BREAST ULTRASOUND: This is a negative study with no evidence of solid or significant cystic lesions in all 4 quadrants o f both breasts. Scanning of both axillary regions is negative for significant adenopathy. IMPRESSION: 1. No radiographic evidence of malignancy. 2. Negative complete bilateral breast ultrasound BI-RADS Category 1 - Negative Breast Density - Category B - Scattered areas of fibroglandular density Breast density Category C or D implies that the patient has dense breast tissue. Dense breast tissue can make it harder to find cancer on a mammogram. Dense breast tissue is also associated with an incr eased risk of breast cancer. This information about the result of the mammogram report was provided to the patient to raise their awareness. Use this report when you speak with the patient about their risks for breast cancer, which includes their family history. At that time, you may recommend additional screening tests (Ultrasoun d or MRI) as these tests may add significant information. A negative radiographic report should not delay biopsy if a dominant or clinically suspicious mass is present. Up to ten percent of cancers are not identified on mammography. A negative report may reinforce clinical impression. Adenosis and dense breasts may obscure an underlying neoplasm. False positive reports average 6 to 10%. Patient will receive a letter notifying them of these results.
== END ==
PROVIDERS: PCP Nurse Practitioner Family; Visit Provider Nurse Practitioner Family
DX: Z12.31 Encounter for screening mammogram for malignant neoplasm of breast (principal); N64.4 Mastodynia
CPT/HCPCS: 76642; 77062; 77066; G0279

== ENCOUNTER → 2023-04-24 00:28 | Outpatient (CLI) | payer MEDICAID, SELFPAY ==
--- NOTE | 2023-04-24 09:30 | DI.US_ITS ---
APPROVED REPORT EXAM: Comprehensive 2D, Doppler, and color-flow Echocardiogram Patient Location: Out-Patient Erosion Control Coordinator: Tsering Mendoza RDCS (AE) Indications: Cardiac murmur Other Information Study Quality: Adequate Conclusion The left ventricular wall thickness and chamber size. Ejection fraction is 60%. Wall motion is norm al. There is normal diastolic function Normal right ventricular size and systolic function Both atria are normal in size There is no structural or hemodynamically significant valvular disease Estimated right ventricular systolic pressure is 29 mmHg Wall motion Left Ventricle The left ventricle is normal size. The left ventricular systolic function is normal. The left ventric ular ejection fraction is within the normal range. There is normal left ventricular wall thickness. T here is normal LV segmental wall motion. There is no ventricular septal defect visualized. LVEF is 60 %. Right Ventricle The right ventricle is normal size. The right ventricular systolic function is normal. Atria The left atrium size is normal. The right atrium size is normal. The interatrial septum is intact wit h no evidence for an atrial septal defect. Aortic Valve The aortic valve is normal in structure. Aortic valve is trileaflet. There is no aortic valvular sten osis. No aortic regurgitation is present. Mitral Valve The mitral valve is normal in structure. No evidence of mitral valve stenosis. Trace to mild mitral regurgitation. Tricuspid Valve The tricuspid valve is normal in structure. There is no tricuspid valve stenosis. Trace tricuspid reg urgitation. The RVSP is 28.8 mmHg. Pulmonic Valve The pulmonary valve is normal in structure. There is no pulmonic valvular stenosis. Trace pulmonic re gurgitation. Great Vessels The aortic root is normal in size. The ascending aorta is normal in size. IVC is normal in size and c ollapses >50% with inspiration. Pericardium There is no pericardial effusion. 2D Dimensions IVSD d PLAX 0.75 cm F: 0.6-1.0 Ao Root d 2.78 cm F: 2.7 - 3.3 LVPW d PLAX 0.73 cm F: 0.6 - 1.0 Ao Asc Diam d 2.97 cm F: 2.3 - 3.1 LVID d PLAX 4.90 cm F: 3.8 - 5.2 LVDs 3.34 cm F: 2.2 - 3.5 LV EF Teichholz 59.9 % FS 31.95 % LV EDV (Teich) 112.9 mL LV ESV (Teich) 45.3 mL M-Mode TAPSE 2.06 cm (M/F) >1.7 Auto EF LV EDV A4C 103.1 mL LV EDV A2C 122.3 mL LV EDV BP 112.1 mL LV ESV A4C 44.0 mL LV ESV A2C 48.1 mL LV ESV BP 45.9 mL LVEF(%) A4C 57.3 % LVEF(%) A2C 60.7 % LVEF(%) BP 59.1 % LV SV A4C 59.1 ml LV SV A2C 74.3 ml LV SV BP 66.2 ml LV CO A4C 4.2 L/min LV CO A2C 4.4 L/min LV CO BP 4.3 L/min HR A4C 70.31 BPM HR A2C 59.50 BPM LV EDV Index (BP) LA Volume LA Length A4C 4.7 cm LA Length A2C 4.8 cm LA Area A4C s 16.61 cm2 LA Area A2C s 14.20 cm2 LA Vol A4C A-L 49.60 mL LA Vol A2C A-L 35.57 mL LA Vol Biplane A-L 42.4 mL LA Vol/BSA A4C A-L LA Vol/BSA A2C A-L LA Vol/BSA BP A-L 20.9 mL/m2 LA Vol A4C MOD 44.4 mL LA Vol A2C MOD 33.4 mL LA Vol BP MOD 38.8 mL RA Volume RA Area A4C 11.9 cm2 RA ESV A4C (A-L) 26.1mL RA Vol/BSA A4C A-L RA Length A4C 4.6 cm RA ESV A4C (MOD) 24.7mL LV Diastology MV E' medial 0.137 (>0.07 m/s) MV E Vmax 0.80 (0.4-1.3 m/s) MV E/E' MED 5.84 (<14) MV A Vmax 0.50 (0.4-1.3 m/s) MV E' lateral 0.180 (>0.1 m/s) E/A Ratio 1.6 MV E/E' LAT 4.45 (<14) MV E' Average 0.159 m/s MV E/E'(average) 5.05 Aortic Valve AoV Vmax 1.63 m/s LVOT Vmax 1.23 m/s AoV Peak Grad 10.6 mmHg LVOT Peak Grad 6.0 mmHg AoV Area (Vmax) 2.40 cm2 LVOT VTI 0.268 m AoV VTI 0.358 m LVOT Mean Grad 3.5 mmHg AoV Mean Crow. 1.13 m/s LVOT SV 85.73 mL AoV Mean Grad 5.8 mmHg LVOT Diam s 2.00 cm AoV Area (VTI) 2.40 cm2 Velocity Ratio 0.75 Mitral Valve MV DT 210 (160-240 msec) MV Vmax TIPS 0.93 m/s MV Mean Grad 1.0 (<2mmHg) MV VTI 0.276 m Pulmonary Valve PV Vmax 1.29 (0.5-1.5 m/s) RVOT Vmax 0.94 m/s PV Peak Grad 6.7 mmHg RVOT Peak Gr. 3.5 mmHg PV Mean Crow 0.90 m/s RVOT VTI 0.208 m PV Mean Grad 3.7 mmHg RVOT Mean Gr. 2.1 mmHg Tricuspid Valve RA Pressure 3.00 mmHg TR Vmax 2.54 m/s TV S' 0.14 m/s TR Peak Grad 25.8 mmHg RVSP (TR) 28.8 mmHg
== END ==
PROVIDERS: PCP Nurse Practitioner Family; Visit Provider Nurse Practitioner Family
DX: R01.1 Cardiac murmur, unspecified (principal)
CPT/HCPCS: 93306

== ENCOUNTER → 2023-05-22 13:28 | Outpatient (CLI) | payer MEDICAID, SELFPAY ==
--- NOTE | 2023-05-22 | DI.RAD_ITS ---
Exam(s) XR LUMBAR SPINE COMPLETE EXAM: XR LUMBAR SPINE COMPLETE CLINICAL HISTORY: LUMBAR BACK PAIN W/ RADICULOPATHY M54.16 SCIATICA LEFT M54.32. TECHNIQUE: 2D digital imaging was performed of the lumbar spine. Six images were obtained. AP, lat eral, right oblique, left oblique and L5-S1 spot views were obtained. COMPARISON: No exams were available for comparison FINDINGS: BONES: No fracture or destructive lesion. Vertebral bodies are unremarkable. No facet hypertrophy edna ntified. DISKS: Intervertebral disc spaces are maintained. ALIGNMENT: Lumbar spinal alignment is within normal limits. No spondylolysis or spondylolisthesis. SOFT TISSUE: There is an IUD in the pelvis. IMPRESSION: Unremarkable radiographs of the lumbar spine. DATA REPOSITORY: RADIATION DOSE DELIVERED:
== END ==
PROVIDERS: PCP Nurse Practitioner Family; Visit Provider Nurse Practitioner Family
DX: M54.32 Sciatica, left side (principal); M54.16 Radiculopathy, lumbar region
CPT/HCPCS: 72110

== ENCOUNTER 2023-10-29 04:00 | Outpatient (CLI) | payer MEDICAID, SELFPAY ==
[2023-10-29 10:09] LABS: HCT 42.8 % (36.0-46.0); HGB 14.3 g/dL (11.2-15.7); MCH 28.1 pg (27.0-33.0); MCHC 33.4 % (32.0-36.0); MCV 84 fL (80-95); MPV 9.7 fL (8.0-11.0); Platelet Count 261 10^3/uL (130-400); RBC 5.08 10^6/uL (3.93-5.22); RDW 12.5 % (11.7-14.6); RDW-SD 38.5 fL; WBC 6.21 10^3/uL (4.4-10.8)
[2023-10-29 11:11] LABS: HCG Qual (Serum) Negative
[2023-10-29 11:12] LABS: Anion Gap 9.7 mmol/L (3-11); BUN 12 mg/dL (7-18); CO2 26.3 mmol/L (21.0-32.0); Calcium 9.2 mg/dL (8.5-10.1); Chloride 105 mmol/L (98-107); Estimated GFR 77.24 (mL/min/1.73m2); Glucose 99 mg/dL (74-106); Potassium 4.2 mmol/L (3.5-5.1); Sodium 141 mmol/L (136-145)
== END 2023-10-29 04:01 | disposition home or self-care (01) ==
LOC: LBO 04:00
PROVIDERS: PCP Nurse Practitioner Family; Visit Provider Obstetrics & Gynecology Gynecology
DX: Z01.818 Encounter for other preprocedural examination (principal)
CPT/HCPCS: 36415; 80048; 85027; 86850; 86900; 86901; 84703

== ENCOUNTER 2023-10-30 09:29 | Day surgery (SDC) | payer MEDICAID, SELFPAY ==
[2023-10-30] VITALS (9 sets, daily range): BP systolic 98–138; BP diastolic 53–86; PULSE 45–63; RESP 15–18; TEMP 36.1–36.7; O2SAT 98–100; BMI 46.1
--- NOTE | 2023-10-30 07:10 | ANES.PREOP_ITS ---
General Info Height: 5 ft 2 in Weight: 109.939 kg Body Mass Index (BMI): 44.3 Surgical Procedure: Operation Date: 10/30/23 10:55 Proposed Procedure Side Surgeon p Salpingectomy Laparoscopic Bilateral Julia Menjivar MD Meds Allergies and Home Medications Allergies Allergy/AdvReac Type Severity Reaction Status Date / Time No Known Allergies Allergy Verified 10/29/23 12:50 Home Medication Medication Instructions Recorded levonorgestrel 21 mcg/24 hours (8 1 device intrauterine ONCE #1 ea 04/19/23 yrs) 52 mg intrauterine device (Mirena) oxycodone-acetaminophen 5 mg-325 1 tab PO Q6H PRN pain #5 tabs 10/29/23 mg tablet (Percocet) Current Visit Medications: Current Medications Generic Name Dose Route Start Last Admin Trade Name Freq PRN Reason Stop Dose Admin Ringer's Solution 1,000 mls @ 125 mls/hr 10/30/23 06:00 IV 10/30/23 23:59 INFUSION RADHA IV Miscellaneous Supplies 1 each 10/30/23 06:00 Iv Access IV 10/30/23 23:59 DIRECTED RADHA Sodium Chloride 0 ml 10/30/23 06:00 Normal Saline Flush 10 Ml Syr IV 10/30/23 23:59 PRN PRN Sodium Chloride 0 ml 10/30/23 06:00 Normal Saline 10 Ml Vial IJ 10/30/23 23:59 DIRECTED PRN Sterile Water 0 ml 10/30/23 06:00 Water,Injection,Sterile 10 Ml Vial IJ 10/30/23 23:59 DIRECTED PRN PFSH Active Problems Active Problems: Problem Status Onset Code Encounter for counseling regarding contraception Z30.09 Dyspareunia, female N94.10 IUD (intrauterine device) in place Z97.5 Postcoital bleeding N93.0 Encounter for visit Z39.2 Amenorrhea N91.2 Sciatica M54.30 GERD (gastroesophageal reflux disease) K21.9 History of surgery on arm Z98.890 BMI 40.0-44.9, adult Z68.41 Medical History Medical History Encounter for insertion of mirena IUD delivery 01/21/21. 36w2d. Path of placenta: hypercoiled umbilical cord may have resulted in release of meconium or may have had caused vascular malperfusion of placenta. Vaginal delivery 36.2 weeks EGA. No complications Elevated glucose tolerance test Tobacco Smoking/Tobacco Use Status: Never Passive smoking exposure: No Second hand exposure: No Alcohol Alcohol Intake: never Substance Use Substance use: Never Substance use type: does not use Prental History History 2 Para 2 Hx # Term Pregnancies 1 Multiple births Hx # Pregnancies 1 Ectopic pregnancies AB induced Hx Number of Living Children 2 AB spontaneous Past Pregnancies Del. Date GA/Weeks # Preg Succ Route Wgt Sex Labor Lgth Anesth esia Location Prov Compl 10/29/16 38 No vaginal 3090.098 g Male 8 hours [facility] [place] 01/22/21 36 No vaginal Female [facility] abarca MD Delivery Date: 10/29/16 Last Updated by: Kay Carvajal CNM heavy bleeding at 20 weeks. Possibly partial abruption. PROM , labor augmentation. Obtaining records. Traumatic epidural start - received a spinal. Son Mchenry - twisted testicle at , amputated. Increased B.P. and severe headache and was seen by OBGyn 1 week after delivery, started on antihypertensive medication x 1 week. Then B.P. returned to normal. Delivery Date: 01/22/21 Last Updated by: PITO Blank Late at 36.3 Vital Signs and Lab Results Lab Results Blood Type / Crossmatch: Patient ABO/Rh A Positive 10/29/23 Antibody Screen NEGATIVE 10/29/23 Complete Blood Count: White Blood Count 6.21 10^3/uL (4.4-10.8) 10/29/23 09:54 Red Blood Count 5.08 10^6/uL (3.93-5.22) 10/29/23 09:54 Hemoglobin 14.3 g/dL (11.2-15.7) 10/29/23 09:54 Hematocrit 42.8 % (36.0-46.0) 10/29/23 09:54 Platelet Count 261 10^3/uL (130-400) 10/29/23 09:54 Complete Metabolic Panel: Sodium 141 mmol/L (136-145) 10/29/23 09:54 Potassium 4.2 mmol/L (3.5-5.1) 10/29/23 09:54 Chloride 105 mmol/L (98-107) 10/29/23 09:54 Carbon Dioxide 26.3 mmol/L (21.0-32.0) 10/29/23 09:54 BUN 12 mg/dL (7-18) 10/29/23 09:54 Creatinine 1.0 mg/dL (0.55-1.02) 10/29/23 09:54 Est GFR (CKD-EPI 2020) 77.24 (mL/min/1.73m2) 10/29/23 09:54 Calcium 9.2 mg/dL (8.5-10.1) 10/29/23 09:54 Glucose 99 mg/dL (74-106) 10/29/23 09:54 Liver Function Panel: No Data to Display Coagulation Panel: No Data to Display Cardiac Panel: No Data to Display Arterial Blood Gas: No Data to Display Venous Blood Gas: No Data to Display Pancreas Panel: No Data to Display Thyroid Panel: No Data to Display Infectious Disease: No Data to Display Blood Cultures: No Data to Display Toxicology Panel: No Data to Display Panel: Serum HCG, Qualitative Negative 10/29/23 09:54 Imaging and Studies Imaging and Studies Study information below may be from another EMR and interpreted by another provider. Please see original notes in EMR for more complete details. Echocardiogram Summary: 05/06: LVEF 60%, no sig valve issues, RVSP 29 mmhg Anesthesia Assessment and Plan Anesthesia History Personal History: No History of Anesthesia Complications Family History: No Family History of Anesthesia Complications Implantable Cardiac Device Does patient have a Pacemaker or an ICD?: No ASA Classification ASA Score: ASA 3 Anesthesia Plan Resuscitation Status: Full Code Anesthesia Technique: General Anesthesia Airway Planned: Endotracheal Tube Monitors Used: Standard Monitors Preoperative Comments:: 33 yo female for lap salping. Sig PMHx: GERD, sciatica, elevated BMI. never smoker. Previous Anes: - difficult epidurals in the past, one with numb from neck down. Epidural here without difficulty.
[2023-10-30] MEDS: Lactated Ringers 1,000 ML 125 ML IV (10:18)
--- NOTE | 2023-10-30 10:42 | ANES.PREOP_ITS ---
General Info Date of Service Date Performed: 10/30/23 Height: 5 ft 1 in Weight: 110.8 kg Body Mass Index (BMI): 46.1 Surgical Procedure: Operation Date: 10/30/23 10:55 Proposed Procedure Side Surgeon p Salpingectomy Laparoscopic Bilateral Julia Menjivar MD Meds Allergies and Home Medications Allergies Allergy/AdvReac Type Severity Reaction Status Date / Time No Known Allergies Allergy Verified 10/30/23 09:52 Home Medication Medication Instructions Recorded levonorgestrel 21 mcg/24 hours (8 1 device intrauterine ONCE #1 ea 04/19/23 yrs) 52 mg intrauterine device (Mirena) oxycodone-acetaminophen 5 mg-325 1 tab PO Q6H PRN pain #5 tabs 10/29/23 mg tablet (Percocet) Current Visit Medications: Current Medications Generic Name Dose Route Start Last Admin Trade Name Freq PRN Reason Stop Dose Admin Ringer's Solution 1,000 mls @ 125 mls/hr 10/30/23 06:00 10/30/23 10:18 IV 10/30/23 23:59 125 mls/hr INFUSION RADHA Administration IV Miscellaneous Supplies 1 each 10/30/23 06:00 Iv Access IV 10/30/23 23:59 DIRECTED RADHA Sodium Chloride 0 ml 10/30/23 06:00 Normal Saline Flush 10 Ml Syr IV 10/30/23 23:59 PRN PRN Sodium Chloride 0 ml 10/30/23 06:00 Normal Saline 10 Ml Vial IJ 10/30/23 23:59 DIRECTED PRN Sterile Water 0 ml 10/30/23 06:00 Water,Injection,Sterile 10 Ml Vial IJ 10/30/23 23:59 DIRECTED PRN PFSH Active Problems Active Problems: Problem Status Onset Code Encounter for counseling regarding contraception Z30.09 Dyspareunia, female N94.10 IUD (intrauterine device) in place Z97.5 Postcoital bleeding N93.0 Encounter for visit Z39.2 Amenorrhea N91.2 Sciatica M54.30 GERD (gastroesophageal reflux disease) K21.9 History of surgery on arm Z98.890 BMI 40.0-44.9, adult Z68.41 Medical History Medical History Encounter for insertion of mirena IUD delivery 01/21/21. 36w2d. Path of placenta: hypercoiled umbilical cord may have resulted in release of meconium or may have had caused vascular malperfusion of placenta. Vaginal delivery 36.2 weeks EGA. No complications Elevated glucose tolerance test Tobacco Smoking/Tobacco Use Status: Never Passive smoking exposure: No Second hand exposure: No Alcohol Alcohol Intake: never Substance Use Substance use: Never Substance use type: does not use Prental History History 2 Para 2 Hx # Term Pregnancies 1 Multiple births Hx # Pregnancies 1 Ectopic pregnancies AB induced Hx Number of Living Children 2 AB spontaneous Past Pregnancies Del. Date GA/Weeks # Preg Succ Route Wgt Sex Labor Lgth Anesth esia Location [facility] 10/29/16 38 No vaginal 3090.098 g Male 8 hours [facility] 01/22/21 36 No vaginal Female [facility] DainaJose'Brooklynn abarca MD Delivery Date: 10/29/16 Last Updated by: Kay Carvajal CNM heavy bleeding at 20 weeks. Possibly partial abruption. PROM , labor augmentation. Obtaining records. Traumatic epidural start - received a spinal. Son Coryell - twisted testicle at , amputated. Increased B.P. and severe headache and was seen by OBGyn 1 week after delivery, started on antihypertensive medication x 1 week. Then B.P. returned to normal. Delivery Date: 01/22/21 Last Updated by: PITO Blank Late at 36.3 Vital Signs and Lab Results Vital Signs Most Recent Vital Signs in EMR: Most Recent Vital Signs Temp Pulse Resp BP Pulse Ox 36.1 C L 63 16 138/86 100 10/30/23 09:58 10/30/23 09:58 10/30/23 09:58 10/30/23 09:58 10/30/23 09:58 Lab Results Blood Type / Crossmatch: Patient ABO/Rh A Positive 10/29/23 Antibody Screen NEGATIVE 10/29/23 Complete Blood Count: White Blood Count 6.21 10^3/uL (4.4-10.8) 10/29/23 09:54 Red Blood Count 5.08 10^6/uL (3.93-5.22) 10/29/23 09:54 Hemoglobin 14.3 g/dL (11.2-15.7) 10/29/23 09:54 Hematocrit 42.8 % (36.0-46.0) 10/29/23 09:54 Platelet Count 261 10^3/uL (130-400) 10/29/23 09:54 Complete Metabolic Panel: Sodium 141 mmol/L (136-145) 10/29/23 09:54 Potassium 4.2 mmol/L (3.5-5.1) 10/29/23 09:54 Chloride 105 mmol/L (98-107) 10/29/23 09:54 Carbon Dioxide 26.3 mmol/L (21.0-32.0) 10/29/23 09:54 BUN 12 mg/dL (7-18) 10/29/23 09:54 Creatinine 1.0 mg/dL (0.55-1.02) 10/29/23 09:54 Est GFR (CKD-EPI 2020) 77.24 (mL/min/1.73m2) 10/29/23 09:54 Calcium 9.2 mg/dL (8.5-10.1) 10/29/23 09:54 Glucose 99 mg/dL (74-106) 10/29/23 09:54 Liver Function Panel: No Data to Display Coagulation Panel: No Data to Display Cardiac Panel: No Data to Display Arterial Blood Gas: No Data to Display Venous Blood Gas: No Data to Display Pancreas Panel: No Data to Display Thyroid Panel: No Data to Display Infectious Disease: No Data to Display Blood Cultures: No Data to Display Toxicology Panel: No Data to Display Panel: Serum HCG, Qualitative Negative 10/29/23 09:54 Imaging and Studies Imaging and Studies Study information below may be from another EMR and interpreted by another provider. Please see original notes in EMR for more complete details. Echocardiogram Summary: 05/06: LVEF 60%, no sig valve issues, RVSP 29 mmhg Anesthesia Assessment and Plan Anesthesia History Personal History: No History of Anesthesia Complications Family History: No Family History of Anesthesia Complications Exercise Tolerance Exercise Tolerance: Metabolic Equivalents>4 Pertinent Negatives Pertinent Negatives: No Symptoms of GERD, No Major Cardiovascular Symptoms or Complaints and No Major Pulmonary Symptoms or Complaints Cardiac & Pulmonary Exam Cardiac Exam: Normal S1/S2 Heart Sounds Pulmonary Exam: Clear Bilateral Breath Sounds Implantable Cardiac Device Does patient have a Pacemaker or an ICD?: No Airway Exam Known Difficult Airway: No Mallampati Class: 1 Mouth Opening: Normal (> 3cm) Thyromental Distance: Greater than 3 cm Neck Range of Motion: Full ROM Neck Circumference: Thick Teeth Condition: Normal Dentition ASA Classification ASA Score: ASA 3 Emergency Case?: No NPO Status NPO Status: NPO Clears >2 hours, Solids >8 hours Status Status: Negative HCG Anesthesia Plan Resuscitation Status: Full Code Anesthesia Technique: General Anesthesia Airway Planned: Endotracheal Tube Monitors Used: Standard Monitors and SedLine
--- NOTE | 2023-10-30 12:30 | FALL_PTH ---
PATIENT: Ericka Ernandez LOC: [facility] U#:[id number] AGE/SX: 33/F ROOM: RE10/30/[address]: Julia Menjivar : 1990 BED: DIS: 10/30/2023 SPEC #: [id number] RECD: 10/30/23 13:06 STATUS: JONNY REShiraz #: [id number] GREGG: 10/30/23 12:[address]: Julia Menjivar DEPT: Surgical Specimen RECD BY: Yasmine Lujan ENTERED: 10/30/23 13:07 SP TYPE: Fall OTHR DR: WILIAN MENEZES Tissues: 1 - FALLOPIAN TUBE (STERILIZATION) 2 - FALLOPIAN TUBE (STERILIZATION) Procedures: GROSS AND MICRO LEVEL 2 Comments: [id number]
--- NOTE | 2023-10-30 12:32 | ROE_ITS ---
Date of service: 10/30/23 Time of Service: 12:32 Operative Note Operative Note DATE OF PROCEDURE: 10/30/23 PRE-OP DIAGNOSIS: multiparity, desires sterilization PROCEDURE: Laparoscopic bilateral salpingectomy SURGEON: Julia Menjivar ASSISTING SURGEON: Ondina Shirley Refer to Anesthesia Record ESTIMATED BLOOD LOSS: 0 PATHOLOGY: other (bialteral fallopian tubes to pathology) COMPLICATIONS: None Patient was transported to: PACU Patient's condition: stable Indications: Pt is a 32yo female who was previously counseled regarding permanent contraception in the form of a tubal sterilzation. She had a Mirena IUD in place that she desired removed at the time of surgery. Findings: Normal uteus, fallopian tubes and ovaries. Normal upper abdomen Procedure Description: Patient was taken to the operating room where she was placed in the dorsal supine position and endotracheal anesthesia was administered without difficulty. SCDs were in place. She was prepped and draped in the usual sterile fashion. She was then placed in the dorsal lithotomy position and a surgical timeout was performed. A bivalve speculum with placed into the vagina and a ring forceps was used to grasp the Mirena IUD string and remove it intact. A Venturocket uterine manipulator was then inserted into the uterine cavity and left in place for the remainder of the procedure. The umbilical fold was infiltrated with 0.25% Marcaine without epinephrine and 12 mm vertical skin incision was made in the u mbilicus. Through this incision a varies needle connected to carbon dioxide gas was inserted into the abdomen and intra-abdominal placement confirmed by drop in the intra-abdominal pressure. Once a pneumoperitoneum was established a 12 mm Visiport trocar was introduced into the abdomen under direct visualization. The patient was then placed in Trendelenburg and 2 sites on the abdomen approximat yanely 6 cm diagonal to the right of and left of the umbilical incision were transilluminated the skin infiltrated with 0.25% Marcaine, incised with a scalpel and under direct visualization two 5 mm ports were placed in the right and left lower quadrants respectively. The abdomen was inspected with the above-noted findings. The left fallopian tube located and followed out to its fimbriated end and a LigaSure electrocautery device was used to clamp cauterize and transect the fimbria from the left mesosalpinx to the level of the left uterine cornua. The left fallopian tube was then delivered through the 10 mm umbilical port and passed off of the operative field. A similar technique was carried out on the right fallopian tube without difficulty. The right fallopian tube was then delivered through the umbilical port. Both fallopian tube pedicles were inspected and noted to be hemostatic. Under direct visualization the two 5 mm ports were removed, pneumoperitoneum reduced, and the umbilical port removed. The fascia of the umbilical port site was reapproximated with interrupted suture of 0 Vicryl. The skin of all trocar sites was reapproximated with 4-0 Monocryl and covered with dry sterile dressings. Hulka uterine manipulator was then removed and the cervix noted to be hemostatic. Patient was placed in the dorsal supine position, awakened extubated and transported to recovery area in stable condition. All sponge lap needle counts are correct x2.
--- NOTE | 2023-10-30 12:45 | PDOC.DSDIS_ITS ---
Date of service: 10/30/23 Time of Service: 12:52 Discharge Plan Disposition Patient Disposition: Home Condition: Stable Discharge Details Reason For Visit: Tubal sterilization Attending Provider: Julia Menjivar Primary Care Provider: Amber Osei Home Meds and New Rx's Prescriptions: Discontinued Mirena 21 mcg/24 hours (8 yrs) 52 mg intrauterine device 1 device intrauterine ONCE Qty: 1 0RF Rx Instructions: as a single dose No Action oxycodone-acetaminophen [Percocet] 5-325 mg tablet 1 tab PO Q6H MDD 4 PRN (Reason: pain) Qty: 5 0RF Hold Instructions: Pt Stopped/Never Started Discharge Instructions Additional Instructions: You may remove the Band-Aids if they become wet and replace them. Leave the Steri-Strips in place until you are seen for 2-week postop visit. If you do not have a postop visit scheduled please call [facility] at and make an appoint with Dr. Menjivar. Your prescription for Percocet 5/325 1 tablet every 6 hours as needed for pain that is not controlled using Motrin or acetaminophen. You can expect uterine bleeding since the Mirena was removed at the time of the procedure. 0 Stand Alone Forms: [employer] SurgeryW/Incision Activity:: Activity as Tolerated Diet:: As Tolerated Discharge Orders Discharge Orders: Discharge Order (Routine); Ordered 10/30/23 Ordered By: Julia Menjivar DS: Diagnosis Discharge Diagnosis (1) Encounter for sterilization: Status: Acute (2) Hx of bilateral salpingectomy: Status: Acute
[2023-10-30] MEDS: Bupivacaine 0.25% Pres-Free 30 ML VIAL (12:47)
--- NOTE | 2023-10-30 12:59 | W.ANESPOSTOP ---
Postoperative Evaluation Date, Time and Location Date Performed: 10/30/23 Time Performed: 12:59 Patient Location: PACU Vital Signs Most Recent Imported Vital Signs: Most Recent Vital Signs Temp Pulse Resp BP Pulse Ox 36.6 C 45 L 15 122/71 100 10/30/23 12:53 10/30/23 12:53 10/30/23 12:53 10/30/23 12:53 10/30/23 12:53 Pain Score Most Recent Pain Score: Most Recent Pain Score Pain Level 5 10/30/23 12:53 Assessment Mental Status: Awake (Alert & Oriented to Patient Baseline) Airway and Respiratory Function: Patent airway with normal (patient baseline) respiratory exam Cardiovascular Function: Hemodynamically Stable Hydration Status: Adequately Hydrated Nausea & Vomiting: No Nausea or Vomiting Pain: Pain is tolerable per patient Peripheral Nerve Block: Patient did not receive a nerve block
== END 2023-10-30 14:13 | disposition home or self-care (01) ==
PROVIDERS: PCP Nurse Practitioner Family; Visit Provider Obstetrics & Gynecology Gynecology
PROC: (CPT 58661; principal; 2023-10-30 10:45)
DX: Z30.2 Encounter for sterilization (principal); Z30.432 Encounter for removal of intrauterine contraceptive device; K21.9 Gastro-esophageal reflux disease without esophagitis; Z79.899 Other long term (current) drug therapy
CPT/HCPCS: 58661; 58301; 88302; J0131; J0665; J1100; J1805; J1885; J2001; J2405; J2704; J3475

== ENCOUNTER 2024-03-30 02:50 | Outpatient (CLI) | payer MEDICAID, SELFPAY ==
--- NOTE | 2024-03-30 | DI.MRI_ITS ---
Exam(s) MR UPPER JOINT LT WO EXAM: MR UPPER JOINT LT WO CLINICAL HISTORY: PAIN LT SHOULDER, M25.512 TECHNIQUE: Multiplanar multisequence MRI of the shoulder was performed. COMPARISON: There are no plain films of the shoulder available time of this MRI interpretation FINDINGS: MARROW:There is no evidence of fracture, Hill-Sachs deformity, nor ominous osseous lesions. GLENOHUMERAL JOINT: No joint effusion nor obvious loose intra-articular bodies. No chondral defects. No osteophytes. No degenerative subarticular cysts. Small amount of fluid in the inferior recess. No synovial thickening. The inferior glenohumeral ligament at this level is intact. ROTATOR CUFF MECHANISM: AC JOINT/ACROMIUM: Mild degenerative findings at the AC joint. No prominent impingement at this leve l.. There is no evidence of os acromiale. Supraspinatus: Intact. No evidence of tear nor muscle atrophy. Infraspinatus: Intact. No evidence of tear nor muscle atrophy. Teres Minor: Intact. No evidence of tear nor muscle atrophy. Subscapularis/anterior cuff: Intact. No abnormal signal at the level of the multipennate insertional fibers. No significant tear nor atrophy. BICEPS TENDON: Exhibits normal position within the intertubercular groove. No evidence of tear. No tenosynovitis. LABRUM: No labral tear identified. No evidence of paralabral cyst. QUADRILATERAL SPACE: No evidence of mass in the region of the axillary nerve and dorsal circumflex hu meral vessels. Visualized triceps muscle at this level appears unremarkable. IMPRESSION: 1. Mild signal abnormality around the AC joint consistent with probable degenerative change or recent injury. No dislocation. 2. No significant rotator cuff pathology demonstrated. 3. No labral tear evident. 4. No prominent glenohumeral joint effusion nor loose intra-articular bodies. No obvious degenerati ve changes in the glenohumeral joint. DATA REPOSITORY:
== END 2024-03-30 03:10 ==
LOC: DI 02:50
PROVIDERS: PCP Nurse Practitioner Family; Visit Provider Nurse Practitioner Family
DX: M25.512 Pain in left shoulder (principal)
CPT/HCPCS: 73221

== ENCOUNTER 2024-04-22 15:00 | Outpatient (REF) | payer MEDICAID, SELFPAY ==
[2024-04-22 19:32] LABS: Abs Immature Grans 0.02 10^3/uL (0.0-0.06); Absolute Basophil Count 0.04 10^3/uL (0.0-0.2); Absolute Eosinophil Count 0.11 10^3/uL (0.0-0.7); Absolute Lymphocyte Count 2.64 10^3/uL (1.2-3.4); Absolute Neutrophil Count 5.22 10^3/uL (1.2-6.7); Basophils % 0.5 %; Eosinophils % 1.3 %; HCT 42.2 % (36.0-46.0); HGB 14.1 g/dL (11.2-15.7); Immature Grans % 0.2 %; Lymphocytes % 31.3 %; MCH 28.3 pg (27.0-33.0); MCHC 33.4 % (32.0-36.0); MCV 85 fL (80-95); MPV 10.5 fL (8.0-11.0); Monocytes % 4.7 %; Platelet Count 255 10^3/uL (130-400); RBC 4.98 10^6/uL (3.93-5.22); RDW-SD 39.8 fL; WBC 8.43 10^3/uL (4.4-10.8)
[2024-04-22 19:41] LABS: Iron 47 ug/dL (50-170); Total Iron Binding Capacity 321 ug/dL (250-450)
[2024-04-22 19:47] LABS: Hemoglobin A1C 5.3 % (<5.7)
[2024-04-22 20:56] LABS: Calculated LDL 118 mg/dL (<100); Cholesterol 202 mg/dL (<200); Ferritin 47 ng/mL (8-252); HDL Cholesterol 37 mg/dL (40-60); TSH (W/Ref FT4) 1.38 uIU/mL (0.36-3.74); Triglyceride 239 mg/dL (<150); Vitamin D 25 Total 19.9 ng/mL (30-100)
== END 2024-04-22 15:01 | disposition home or self-care (01) ==
LOC: NCHCN 15:00
PROVIDERS: PCP Nurse Practitioner Family; Visit Provider Nurse Practitioner Family
DX: Z68.41 Body mass index [BMI] 40.0-44.9, adult (principal); E66.9 Obesity, unspecified
CPT/HCPCS: 80061; 82306; 82728; 83036; 83540; 83550; 84443; 85025

== ENCOUNTER 2024-05-05 15:26 | Outpatient (CLI) | payer MEDICAID, SELFPAY ==
--- NOTE | 2024-05-05 08:30 | DI.RAD_ITS ---
Exam(s) XR SHOULDER LT 1V EXAM: XR SHOULDER LT 1V CLINICAL HISTORY: LEFT SHOULDER PAIN. TECHNIQUE: 2D digital imaging was performed of the left shoulder. One images were obtained. AP vie ws were obtained. COMPARISON: MR MR UPPER JOINT LT WO from 03/30/2024 FINDINGS: This is a limited series with a single AP view. Mild degenerative changes are seen at the acromiocla vicular joint. The bones are normally mineralized. The soft tissues are unremarkable. No suspiciou s lytic or sclerotic lesions are seen on this limited examination. Glenohumeral joint is well mainta ined. 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 DATA REPOSITORY: RADIATION DOSE DELIVERED:
== END 2024-05-05 15:27 ==
LOC: DIORS 15:27
PROVIDERS: PCP Nurse Practitioner Family; Visit Provider Student in an Organized Health Care Education/Training Program
DX: M25.512 Pain in left shoulder (principal)
CPT/HCPCS: 73020

== ENCOUNTER 2024-07-21 15:55 | Outpatient (CLI) | payer MEDICAID, SELFPAY ==
--- NOTE | 2024-07-21 08:45 | DI.RAD_ITS ---
Exam(s) XR SHOULDER LT 1V EXAM: XR SHOULDER LT 1V CLINICAL HISTORY: F/U DISTAL CLAVICLE OSTEOLYSIS. TECHNIQUE: 2D digital imaging was performed of the left shoulder. One images were obtained. AP, Gr ashey, Y-view and axillary views were obtained. COMPARISON: CR XR SHOULDER LT 1V from 05/05/2024 FINDINGS: BONES: There has been no change in appearance of the distal left clavicle or the acromioclavicular prabha int. No periosteal reaction is seen. There is no acute fracture or dislocation. JOINTS: No dislocation present. SOFT TISSUE: Normal. IMPRESSION: Stable appearance of the distal left clavicle. DATA REPOSITORY: RADIATION DOSE DELIVERED:
== END 2024-07-21 15:56 | disposition home or self-care (01) ==
LOC: DIORS 15:55
PROVIDERS: PCP Nurse Practitioner Family; Visit Provider Student in an Organized Health Care Education/Training Program
DX: M89.512 Osteolysis, left shoulder (principal)
CPT/HCPCS: 73020

== ENCOUNTER 2024-12-08 10:38 | Outpatient (CLI) | payer MEDICAID, SELFPAY ==
--- NOTE | 2024-12-08 08:57 | DI.RAD_ITS ---
Exam(s) XR SHOULDER RT COMPLETE 2+V EXAM: XR SHOULDER RT COMPLETE 2+V CLINICAL HISTORY: RIGHT SHOULDER PAIN. TECHNIQUE: 2D digital imaging was performed. COMPARISON: CR XR SHOULDER LT 1V from 07/21/2024 FINDINGS: 3 views No evidence of fracture or dislocation or abnormal soft tissue calcifications. Subacromial space unr emarkable. No obvious degenerative changes in the glenohumeral and AC joints. No obvious findings i n the partially included clavicle. IMPRESSION: No significant osseous findings in the right shoulder. DATA REPOSITORY: RADIATION DOSE DELIVERED:
== END 2024-12-08 10:39 | disposition home or self-care (01) ==
LOC: DIORS 10:39
PROVIDERS: PCP Nurse Practitioner Family; Visit Provider Student in an Organized Health Care Education/Training Program
DX: M25.511 Pain in right shoulder (principal)
CPT/HCPCS: 73030

== ENCOUNTER 2025-01-27 15:04 | Outpatient (CLI) | payer MEDICAID, SELFPAY ==
--- NOTE | 2025-01-27 14:45 | DI.RAD_ITS ---
Exam(s) XR SHOULDER RT 1V EXAM: XR SHOULDER RT 1V CLINICAL HISTORY: RIGHT SHOULDER PAIN. TECHNIQUE: 2D digital imaging was performed. COMPARISON: CR XR SHOULDER RT COMPLETE 2+V from 12/08/2024 FINDINGS: Single AP view Limited single study view reveals no evidence of fracture or dislocation glenohumeral joint. AC joint is intact. There is, however, possible abnormality in the mid-lateral aspect of the clavicle. There is some fusiform soft tissue mass density associated with the clavicle at this level. Additional imaging recommended IMPRESSION: As above. Additional imaging recommended. DATA REPOSITORY: RADIATION DOSE DELIVERED:
== END 2025-01-27 15:05 | disposition home or self-care (01) ==
LOC: DIORS 15:04
PROVIDERS: PCP Nurse Practitioner Family; Visit Provider Student in an Organized Health Care Education/Training Program
DX: M25.511 Pain in right shoulder (principal)
CPT/HCPCS: 73020

== ENCOUNTER 2025-03-19 05:23 | Outpatient (CLI) | payer MEDICAID, SELFPAY ==
--- NOTE | 2025-03-19 08:05 | DI.MRI_ITS ---
Exam(s) MR UPPER JOINT RT WO EXAM: MR UPPER JOINT RT WO CLINICAL HISTORY: R SHOULDER PAIN, ARTHRALGIA RT ACROMIOCLAVICULAR JOINT, M25.511. TECHNIQUE: Multiplanar multisequence MRI was performed. COMPARISON: Plain films 08 Dec 2024 and 27 January 2025 FINDINGS: BONES: There there is marrow edema in the distal clavicle which could indicate bone contusion. There is no abnormal marrow signal in the acromion. Are few tiny cysts in the posterior humeral head. JOINTS:The acromioclavicular joint is not widened. No significant spurring. No fluid in the AC joint. The glenohumeral joint is normal. TENDONS: Supraspinatus: Unremarkable. Infraspinatus: Unremarkable. Subscapularis: Unremarkable. Teres Minor: Unremarkable. Biceps and [place]: Unremarkable. MUSCLES: Unremarkable. GLENOID LABRUM: Unremarkable on this noncontrast examination. SOFT TISSUES: Unremarkable. BURSAE: Subacromial and subdeltoid bursae . IMPRESSION: High signal in the marrow of the distal clavicle. No discrete fracture. No AC joint widening or fluid within the AC joint. Findings could indicate a contusion. DATA REPOSITORY:
== END 2025-03-19 05:43 ==
LOC: DI 05:23
PROVIDERS: PCP Nurse Practitioner Family; Visit Provider Student in an Organized Health Care Education/Training Program
DX: M25.511 Pain in right shoulder (principal)
CPT/HCPCS: 73221

== ENCOUNTER 2025-05-13 16:47 | Outpatient (REF) | payer MEDICAID, SELFPAY | END 2025-05-13 16:48 | disposition home or self-care (01) | LOC: NCHCN 16:47 | PROVIDERS: PCP Nurse Practitioner Family | DX: N89.8 Other specified noninflammatory disorders of vagina (principal) | CPT/HCPCS: 87480; 87510; 87660 ==

== ENCOUNTER 2025-05-14 13:04 | Outpatient (CLI) | payer MEDICAID, SELFPAY ==
[2025-05-14 10:05] LABS: HCT 42.0 % (36.0-46.0); HGB 14.1 g/dL (11.2-15.7); MCH 27.5 pg (27.0-33.0); MCHC 33.6 % (32.0-36.0); MCV 82 fL (80-95); MPV 10.7 fL (8.0-11.0); Platelet Count 232 10^3/uL (130-400); RBC 5.12 10^6/uL (3.93-5.22); RDW 12.7 % (11.7-14.6); RDW-SD 38.0 fL; WBC 7.06 10^3/uL (4.4-10.8)
[2025-05-14 10:20] LABS: Hemoglobin A1C 5.3 % (<5.7)
[2025-05-14 10:52] LABS: ALT 24 U/L (14-59); AST 16 U/L (15-37); Albumin 4.1 g/dL (3.4-5.0); Alkaline Phosphatase 58 U/L (46-116); Anion Gap 9.0 mmol/L (3-11); BUN 14 mg/dL (7-18); Bilirubin, Total 0.4 mg/dL (0.2-1.0); CO2 28.0 mmol/L (21.0-32.0); Calcium 9.3 mg/dL (8.5-10.1); Chloride 103 mmol/L (98-107); Glucose 86 mg/dL (74-106); Potassium 4.0 mmol/L (3.5-5.1); Sodium 140 mmol/L (136-145); TSH (W/Ref FT4) 1.10 uIU/mL (0.36-3.74); Total Protein 7.9 g/dL (6.4-8.2)
== END 2025-05-14 13:05 | disposition home or self-care (01) ==
PROVIDERS: PCP Nurse Practitioner Family
DX: Z00.00 Encounter for general adult medical examination without abnormal findings (principal); E66.01 Morbid (severe) obesity due to excess calories
CPT/HCPCS: 36415; 80053; 85027; 83036; 84443

== ENCOUNTER → 2025-05-21 03:28 | Outpatient (CLI) | payer MEDICAID, SELFPAY ==
--- NOTE | 2025-05-21 14:00 | DI.US_ITS ---
APPROVED REPORT EXAM: Comprehensive 2D, Doppler, and color-flow Echocardiogram Patient Location: Out-Patient Er Manager: Tsering Mendoza RDCS (AE) Indications: Cardiac Murmur unspecified Other Information Study Quality: Adequate Conclusion Normal left ventricular wall thickness and chamber size. Ejection fraction is 60%. Wall motion is normal Normal right ventricular size and function Both atria are normal in size There is no structural or hemodynamically significant valvular disease Normal estimated right ventricular systolic pressure 26 mmHg There is no change compared to previous echocardiogram from April 2023 Wall motion Left Ventricle The left ventricle is normal size. The left ventricular systolic function is normal. The left ventricular ejection fraction is within the normal range. There is normal left ventricular wall thickness. There is normal LV segmental wall motion. There is no ventricular septal defect visualized. LVEF is 60%. Right Ventricle The right ventricle is normal size. The right ventricular systolic function is normal. Atria The left atrium size is normal. The right atrium size is normal. The interatrial septum is intact with no evidence for an atrial septal defect. Aortic Valve The aortic valve is normal in structure. Aortic valve is trileaflet. There is no aortic valvular stenosis. No aortic regurgitation is present. Mitral Valve The mitral valve is normal in structure. No evidence of mitral valve stenosis. Trace mitral regurgitation. Tricuspid Valve The tricuspid valve is normal in structure. There is no tricuspid valve stenosis. Trace tricuspid regurgitation. The RVSP is 26.0_ mmHg. Pulmonic Valve The pulmonary valve is normal in structure. There is no pulmonic valvular stenosis. There is no pulmonic valvular regurgitation. Great Vessels The aortic root is normal in size. The ascending aorta is normal in size. Aortic arch is normal in caliber. IVC is normal in size and collapses >50% with inspiration. Pericardium There is no pericardial effusion. 2D Dimensions IVSD d PLAX 0.90 cm F: 0.6-1.0 Ao Root d 2.65 cm F: 2.7 - 3.3 LVPW d PLAX 0.92 cm F: 0.6 - 1.0 Ao Asc Diam d 2.88 cm F: 2.3 - 3.1 LVID d PLAX 4.94 cm F: 3.8 - 5.2 LVDs 3.40 cm F: 2.2 - 3.5 LV EF Teichholz 60.0 % FS 32.06 % LV EDV (Teich) 115.0 mL LV ESV (Teich) 46.0 mL M-Mode TAPSE 2.86 cm (M/F) >1.7 Auto EF LV EDV A4C 140.7 mL LV EDV A2C 131.8 mL LV EDV BP 137.8 mL LV ESV A4C 55.8 mL LV ESV A2C 53.1 mL LV ESV BP 54.9 mL LVEF(%) A4C 60.3 % LVEF(%) A2C 59.7 % LVEF(%) BP 60.2 % LV SV A4C 84.8 ml LV SV A2C 78.7 ml LV SV BP 82.9 ml LV CO A4C 4.4 L/min LV CO A2C 4.3 L/min LV CO BP 4.3 L/min HR A4C 51.80 BPM HR A2C 54.12 BPM LV EDV Index (BP) LA Volume LA Length A4C 5.3 cm LA Length A2C 4.5 cm LA Area A4C s 17.52 cm2 LA Area A2C s 15.38 cm2 LA Vol A4C A-L 49.19 mL LA Vol A2C A-L 44.36 mL LA Vol Biplane A-L 50.5 mL LA Vol/BSA A4C A-L LA Vol/BSA A2C A-L LA Vol/BSA BP A-L 24.9 mL/m2 LA Vol A4C MOD 42.7 mL LA Vol A2C MOD 42.3 mL LA Vol BP MOD 45.9 mL RA Volume RA Area A4C 13.6 cm2 RA ESV A4C (A-L) 31.1mL RA Vol/BSA A4C A-L RA Length A4C 5.1 cm RA ESV A4C (MOD) 29.5mL LV Diastology MV E' medial 0.134 (>0.07 m/s) MV E Vmax 0.80 (0.4-1.3 m/s) MV E/E' MED 5.99 (<14) MV A Vmax 0.50 (0.4-1.3 m/s) MV E' lateral 0.154 (>0.1 m/s) E/A Ratio 1.6 MV E/E' LAT 5.19 (<14) MV E' Average 0.144 m/s MV E/E'(average) 5.56 Aortic Valve AoV Vmax 1.50 m/s LVOT Vmax 1.22 m/s AoV Peak Grad 9.0 mmHg LVOT Peak Grad 6.0 mmHg AoV Area (Vmax) 2.45 cm2 LVOT VTI 0.280 m AoV VTI 0.343 m LVOT Mean Grad 3.6 mmHg AoV Mean Crow. 1.06 m/s LVOT SV 84.51 mL AoV Mean Grad 5.1 mmHg LVOT Diam s 1.95 cm AoV Area (VTI) 2.47 cm2 AV Regurg Peak Gr. 9.04 mmHg Velocity Ratio 0.81 Mitral Valve MV DT 187 (160-240 msec) MV Vmax TIPS 0.88 m/s MV Mean Grad 0.9 (<2mmHg) MV VTI 0.301 m Pulmonary Valve PV Vmax 1.03 (0.5-1.5 m/s) RVOT Vmax 0.91 m/s PV Peak Grad 4.2 mmHg RVOT Peak Gr. 3.3 mmHg PV Mean Crow 0.73 m/s RVOT VTI 0.220 m PV Mean Grad 2.5 mmHg RVOT Mean Gr. 1.8 mmHg Tricuspid Valve RA Pressure 3.00 mmHg TR Vmax 2.40 m/s TV S' 0.17 m/s TR Peak Grad 23.0 mmHg RVSP (TR) 26.0 mmHg
== END ==
LOC: DI 03:28
PROVIDERS: PCP Nurse Practitioner Family
DX: R01.1 Cardiac murmur, unspecified (principal)
CPT/HCPCS: 93306